=== PATIENT | female | born 1995 | race Caucasian/White ===

== ENCOUNTER 2016-12-02 13:02 | Emergency (ER) | payer BC ==
[2016-12-02 14:31] VITALS: BP 99/69; PULSE 90; O2SAT 96
[2016-12-02] MEDS ORDERED: TORAdol 30 mg Injection IM ONE (14:35)
[2016-12-02] MEDS ORDERED: Phenergan 25 MG INJ IM ONE (14:35)
[2016-12-02] MEDS ORDERED: TORAdol 30 mg Injection ONE (14:36)
[2016-12-02] MEDS ORDERED: Phenergan 25 MG INJ ONE (14:36)
--- NOTE | 2016-12-02 14:40 | ERPHSYRPT ---
- History of Present Illness Time Seen by Provider: 12/02/16 14:36 Source: patient Exam Limitations: no limitations Patient Subjective Stated Complaint: PT REPORTS LAST NIGHT BEGAN BLEEDING DURING SEXUAL ENCOUNTER-ATTEMPTED SEXUAL INTERCOURSE ET HAD SHARP PAIN-BLEEDING HAS RESOLVED TODAY-REPORTS LEFT SIDED LOW ET UPPER ABD PAIN INTERMITTANT IN NATURE-WORSENING AFTER EATING-N/V/D-REPORTS HEADACHE-HX OF HEADACHES ET IS OUT OF HOME MEDS-STATES IT FEELS LIKE THE ONES SHE USUALLY GETS Triage Nursing Assessment: PT PINK WARM ET DRY-A & O X 3-MOVING ALL EXTREMITIES WITH EASE-ABD SOFT ET TENDER TO PALP-BOWEL SOUND SPRESENT-RESP EASY ET NONLABORED Physician History: The patient is a 20-year-old female with a history of chronic migraine headaches who developed a typical migraine headache yesterday with pain behind both eyes. The headache continues today. She has tried Imitrex in the past but not today. She hasn't tried anything for her headache today. She has mild photophobia. She denies nausea at this time. She has multiple other complaints that include diarrhea for about one week that has resolved. Along with the diarrhea she had left-sided abdominal pain that is minimal now. Another complaint is last night she was having sexual activity with her boyfriend and had some vaginal bleeding afterward. The vaginal bleeding lasted only a few minutes and has stopped. She states she's had some mild pain with intercourse the past 2 weeks. Timing/Duration: yesterday Quality: aching Head Pain Location: frontal Severity of Pain-Max: moderate Severity of Pain-Current: moderate Modifying Factors: Improves With: exposure to light Associated Symptoms: denies symptoms Previous symptoms: same symptoms as today Allergies/Adverse Reactions: tramadol Allergy (Unknown, Verified 12/02/16 13:19) Home Medications: Aripiprazole [Abilify] 2 mg PO DAILY 12/02/16 [History] Atenolol 50 mg [Tenormin 50 mg] 50 mg PO BID 12/02/16 [History] Sertraline HCl 50 mg [Zoloft 50 mg Tablet] 50 mg PO DAILY 12/02/16 [History] Hx Tetanus, Diphtheria Vaccination/Date Given: Yes Hx Influenza Vaccination/Date Given: Yes (2015) Hx Pneumococcal Vaccination/Date Given: No Immunizations Up to Date: Yes - Review of Systems Constitutional: No Fever, No Chills Eyes: No Symptoms Ears, Nose, & Throat: No Symptoms Respiratory: No Cough, No Dyspnea Cardiac: No Chest Pain, No Edema, No Syncope Abdominal/Gastrointestinal: No Abdominal Pain, No Nausea, No Vomiting, No Diarrhea Genitourinary Symptoms: No Dysuria Musculoskeletal: No Back Pain, No Neck Pain Skin: No Rash Neurological: Headache Psychological: No Symptoms Endocrine: No Symptoms Hematologic/Lymphatic: No Symptoms Immunological/Allergic: No Symptoms All Other Systems: Reviewed and Negative - Past Medical History Pertinent Past Medical History: Yes Neurological History: Migraines ENT History: No Pertinent History Cardiac History: No Pertinent History Respiratory History: No Pertinent History Endocrine Medical History: No Pertinent History Musculoskeletal History: No Pertinent History GI Medical History: No Pertinent History History: No Pertinent History Psycho-Social History: No Pertinent History Female Reproductive Disorders: No Pertinent History - Past Surgical History Past Surgical History: Yes Neuro Surgical History: No Pertinent History Cardiac: No Pertinent History Respiratory: No Pertinent History Gastrointestinal: No Pertinent History Genitourinary: Other Musculoskeletal: No Pertinent History Female Surgical History: Section - Social History Smoking Status: Former smoker Exposure to second hand smoke: Yes Drug Use: none Patient Lives Alone: No - Female History Hx Last Menstrual Period: 2 WKS AGO Hx Now: No - Nursing Vital Signs Nursing Vital Signs: Initial Vital Signs Temperature 98.1 F Temperature Source Oral Pulse Rate 90 Respiratory Rate 20 Blood Pressure [Right Arm] 99/69 Pain Intensity 5 - Physical Exam General Appearance: no apparent distress Eye Exam: PERRL/EOMI Ears, Nose, Throat Exam: normal ENT inspection, moist mucous membranes Neck Exam: normal inspection, supple, full range of motion, No meningismus Respiratory Exam: normal breath sounds, lungs clear Cardiovascular Exam: regular rate/rhythm, normal heart sounds Gastrointestinal/Abdominal Exam: soft, No tenderness, No distention Back Exam: normal inspection, normal range of motion Extremity Exam: normal inspection 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, 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, 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 Exam: normal speech, PERRL, No facial droop Coordination/Gait Exam: normal cerebellar function Motor/Sensory Exam: no motor deficit, no sensory deficit Skin Exam: normal color, warm, dry, No rash SpO2 Interpretation: normal SpO2: 96 Oxygen Delivery: Room Air - Progress Progress: improved Air Movement: good Blood Culture(s) Obtained: No Antibiotics given: No Counseled pt/family regarding: diagnosis, need for follow-up - Departure Time of Disposition: 14:41 Departure Disposition: Home Clinical Impression: Migraine headache Condition: Stable Critical Care Time: No Additional Instructions: 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
== END 2016-12-02 14:52 | disposition home or self-care (01) ==
LOC: ED 13:02
DX: G43.909 Migraine, unspecified, not intractable, without status migrainosus (principal); N94.10 Unspecified dyspareunia; R10.32 Left lower quadrant pain; R10.12 Left upper quadrant pain
CPT/HCPCS: 96372; 99282; 99283; 99284; J1885; J2550

== ENCOUNTER 2017-02-22 18:31 | Emergency (ER) | payer BC ==
--- NOTE | 2017-02-22 19:26 | ERPHSYRPT ---
- History of Present Illness Time Seen by Provider: 02/22/17 19:00 Source: patient Exam Limitations: no limitations Patient Subjective Stated Complaint: headache for 3 days Triage Nursing Assessment: rt side headache for 3 days. rt side facial swelling for 3 days. staets has sharp pain to rt head with coughing. productive cough for 1 week with yellow sputum. no fever. no n/v/d. pupils tay. states has normal migraines but 'this pain is different Physician History: Recent increased treatment for HTN includes Atenolol and Lisinopril. BP remains elevated here. She C/O right parietal AYALA. LNMP 8 days ago. Timing/Duration: day(s) (3) Quality: sharpness Head Pain Location: parietal (right) Severity of Pain-Max: severe Severity of Pain-Current: severe Recent Head Trauma: no recent headache/trauma, occasional headaches Associated Symptoms: dizziness, No facial pain, No fever/chills Previous symptoms: recently seen, recently treated Allergies/Adverse Reactions: tramadol Allergy (Unknown, Verified 02/22/17 18:48) Home Medications: Aripiprazole [Abilify] 2 mg PO DAILY 12/02/16 [History] Atenolol 50 mg [Tenormin 50 mg] 50 mg PO BID 12/02/16 [History] Sertraline HCl 50 mg [Zoloft 50 mg Tablet] 50 mg PO DAILY 12/02/16 [History] Alprazolam 1 mg [Xanax 1 mg] 1 mg PO HS 02/22/17 [History] Lisinopril 20 mg [Zestril 20 MG] 20 mg PO DAILY 02/22/17 [History] Simvastatin 20 mg PO DAILY 02/22/17 [History] Hx Tetanus, Diphtheria Vaccination/Date Given: Yes Hx Influenza Vaccination/Date Given: Yes Hx Pneumococcal Vaccination/Date Given: No Immunizations Up to Date: Yes - Review of Systems Constitutional: No Symptoms Eyes: No Symptoms Ears, Nose, & Throat: No Symptoms Respiratory: No Symptoms Cardiac: No Symptoms Abdominal/Gastrointestinal: No Symptoms Musculoskeletal: No Symptoms Skin: No Symptoms Neurological: Headache Psychological: No Symptoms Endocrine: No Symptoms Hematologic/Lymphatic: No Symptoms Immunological/Allergic: No Symptoms - Past Medical History Pertinent Past Medical History: Yes Neurological History: Migraines ENT History: No Pertinent History Cardiac History: No Pertinent History, High Cholesterol, Hypertension Respiratory History: No Pertinent History Endocrine Medical History: No Pertinent History Musculoskeletal History: No Pertinent History GI Medical History: No Pertinent History History: No Pertinent History Psycho-Social History: No Pertinent History Female Reproductive Disorders: No Pertinent History - Past Surgical History Past Surgical History: Yes Neuro Surgical History: No Pertinent History Cardiac: No Pertinent History Respiratory: No Pertinent History Gastrointestinal: No Pertinent History Genitourinary: Other Musculoskeletal: No Pertinent History Female Surgical History: Section - Social History Smoking Status: Current every day smoker Exposure to second hand smoke: No Drug Use: none Patient Lives Alone: No - Female History Hx Last Menstrual Period: 2 weeks Hx Now: No - Nursing Vital Signs Nursing Vital Signs: Initial Vital Signs Temperature 97.5 F Temperature Source Oral Pulse Rate 76 Respiratory Rate 18 Blood Pressure [Right Arm] 146/96 Pain Intensity 7 - Physical Exam General Appearance: moderate distress Eye Exam: PERRL/EOMI, eyes nml inspection Ears, Nose, Throat Exam: normal ENT inspection, TMs normal, pharynx normal, moist mucous membranes Neck Exam: normal inspection, non-tender, supple, full range of motion Respiratory Exam: normal breath sounds, lungs clear, airway intact Cardiovascular Exam: regular rate/rhythm, normal heart sounds, normal peripheral pulses Gastrointestinal/Abdominal Exam: soft, normal bowel sounds Back Exam: normal inspection, normal range of motion Extremity Exam: normal inspection, normal range of motion, pelvis stable 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, 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, 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 Exam: normal hearing, normal speech, PERRL, tongue midline, No facial asymmetry, No facial droop, No facial paresthesias, No facial weakness, No gaze palsy, No hearing deficit (R), No hearing deficit (L), No tongue deviation to R , No tongue deviation to L Coordination/Gait Exam: normal cerebellar function Motor/Sensory Exam: no motor deficit, no sensory deficit, no pronator drift Skin Exam: normal color, warm, dry SpO2 Interpretation: normal SpO2: 98 Oxygen Delivery: Room Air - Course Nursing assessment & vital signs reviewed: Yes - CT Exams Head CT Interpretation: Tele-radiologist Report, No/Intracranial Hemorrhag, Other ( sphenoid sinusitis) Ordered Tests: Active Orders 24 hr Category Date Time Status HEAD WITHOUT CONTRAST [CT] Stat Exams 02/22/17 20:02 Taken Medication Summary Discontinued Medications Generic Name Dose Route Start Last Admin Trade Name Tiera PRN Reason Stop Dose Admin Diphenhydramine HCl 25 mg 02/22/17 20:03 Benadryl 50 Mg/Ml IV 02/22/17 20:04 STAT ONE Ketorolac Tromethamine 30 mg 02/22/17 20:04 Toradol 30 Mg Injection IV 02/22/17 20:05 STAT ONE Metoclopramide HCl 10 mg 02/22/17 20:02 Reglan 10 Mg/2 Ml IV 02/22/17 20:03 STAT ONE Ondansetron HCl 4 mg 02/22/17 20:03 Zofran 4 Mg/2 Ml Vial IV 02/22/17 20:04 STAT ONE - Progress Progress: improved Air Movement: good Blood Culture(s) Obtained: No Antibiotics given: Yes Will see patient in: other (PCP 1 week) Counseled pt/family regarding: diagnosis, need for follow-up, rad results - Departure Time of Disposition: 20:30 Departure Disposition: Home Clinical Impression: Headache Qualifiers: Headache type: tension-type Headache chronicity pattern: acute headache Intractability: not intractable Qualified Code(s): G44.209 - Tension-type headache, unspecified, not intractable Hypertension Qualifiers: Hypertension type: unspecified secondary hypertension Qualified Code(s): I15.9 - Secondary hypertension, unspecified; I15 - Secondary hypertension Sinusitis, acute, sphenoidal Qualifiers: Recurrence: not specified as recurrent Qualified Code(s): J01.30 - Acute sphenoidal sinusitis, unspecified Condition: Stable Critical Care Time: Yes Critical Care Time(excluding separately billable procedures): 75-104 minutes Instructions: Headache Additional Instructions: hypertension sinusitis
[2017-02-22] MEDS ORDERED: Reglan 10 MG/2 ML IV ONE (20:02)
[2017-02-22] MEDS ORDERED: BENADRYL 50 MG/ML IV ONE (20:03)
[2017-02-22] MEDS ORDERED: Zofran 4 MG/2 ML VIAL IV ONE (20:03)
[2017-02-22] MEDS ORDERED: TORAdol 30 mg Injection IV ONE (20:04)
[2017-02-22] MEDS ORDERED: LOPRESSOR 5 MG/5 ML INJECTION IV ONE ×2 (20:35→20:37)
[2017-02-22] MEDS ORDERED: Zofran 4 MG/2 ML VIAL ONE (20:37)
[2017-02-22] MEDS ORDERED: Reglan 10 MG/2 ML ONE (20:37)
[2017-02-22] MEDS ORDERED: BENADRYL 50 MG/ML ONE (20:37)
[2017-02-22] MEDS ORDERED: TORAdol 30 mg Injection ONE (20:37)
[2017-02-22] MEDS ORDERED: Zithromax 250 MG TABLET PO ONE (20:42)
[2017-02-22] MEDS ORDERED: Zithromax 250 MG TABLET ONE (20:44)
[2017-02-22 21:27] VITALS: BP 132/84; PULSE 78; O2SAT 98
--- NOTE | 2017-02-23 09:05 | XRAY ---
Indication: Migraine headache. Multiple contiguous axial images obtained through the head without contrast. Comparison: None Normal appearing brain parenchyma, ventricles, and bony calvarium. Right sphenoid sinus fluid leveling. Remaining visualized paranasal sinuses and mastoid air cells are pneumatized and clear. Impression: No acute intracranial abnormalities. Incidental paranasal sinus disease. Comment: Preliminary interpretation was made by [facility]. No discrepancy. CT DI 69.66
== END 2017-02-22 21:28 | disposition home or self-care (01) ==
LOC: ED 18:31
DX: G44.209 Tension-type headache, unspecified, not intractable (principal); I15.9 Secondary hypertension, unspecified; J01.30 Acute sphenoidal sinusitis, unspecified
CPT/HCPCS: 70450; 96374; 96375; 99284; J1200; J1885; J2405; A9270-GY

== ENCOUNTER 2017-09-15 18:00 | Emergency (ER) | payer BC ==
[2017-09-15] MEDS ORDERED: Sodium Chloride 0.9% 1000 ML 1,000 ML IV STA (18:24)
[2017-09-15] MEDS ORDERED: BENADRYL 50 MG/ML IV ONE (18:30)
[2017-09-15] MEDS ORDERED: Hydromorphone 1 mg/ml Ampule IV ONE ×2 (18:30→19:30)
[2017-09-15] MEDS ORDERED: BENADRYL 50 MG/ML ONE (18:36)
[2017-09-15] MEDS ORDERED: Sodium Chloride 0.9% 1000 ML 1,000 ML ONE (18:36)
[2017-09-15] MEDS ORDERED: Hydromorphone 1 mg/ml Ampule ONE ×2 (18:36→19:33)
[2017-09-15 18:45] LABS: BASOPHIL % 0.3 % (0.0-0.4); Eosinophil % 1.7 % (0.00-5.0); Granulocytes % 56.3 % (36.0-66.0); Lymphocytes % 34.4 % (24.0-44.0); Mean Cell Volume 94.4 fl (78-100); Mean Corpuscular Hemoglobin 32.2 pg (26-32); Mean Platelet Volume 9.4 fl (6-9.5); Monocytes % 7.3 % (0.0-12.0); Platelet Count 249 K/mm3 (150-450); Red Blood Count 3.94 M/mm3 (4.1-5.4); Red Cell Distribution Width 12.3 % (11.5-14.0); White Blood Count 11.1 K/mm3 (4.0-10.5)
[2017-09-15 19:06] LABS: ALBUMIN 3.8 g/dL (3.4-5.0); ANION GAP 15.2 MEQ/L (5-15); BILIRUBIN,TOTAL 0.5 mg/dL (0.2-1.0); Carbon Dioxide 25.1 mEq/L (21-32); Potassium 3.7 mEq/L (3.5-5.1); Total Protein 6.8 gm/dL (6.4-8.2)
--- NOTE | 2017-09-15 19:14 | ERPHSYRPT ---
- History of Present Illness Historian: patient Patient Subjective Stated Complaint: pt states she started having left sided abdominal pain this morning, states around 1400 it became unbearable. Triage Nursing Assessment: pt is aox3, pupils perrl, resps easy and non labored , radial pulses strong and equal, abd is soft and non tender w palpation, bowel sounds present and normoactivex4. pain to the LLQ constant and sharp in nature, pain radiates around the left flank to the lower back. denies any diffilculty with urination. Timing/Duration: today Abdominal Pain Onset Location: LLQ Severity of Pain-Max: severe Severity of Pain-Current: severe Hx Tetanus, Diphtheria Vaccination/Date Given: Yes Hx Influenza Vaccination/Date Given: No Hx Pneumococcal Vaccination/Date Given: No Immunizations Up to Date: Yes <LETI ENRIQUEZ - Last Filed: 09/15/17 19:10> <MOLLY CASTORENA - Last Filed: 09/15/17 20:30> - History of Present Illness Time Seen by Provider: 09/15/17 18:17 Physician History: CC: abd pain Hx: 22 y/o patient of [facility]IR[facility] Barr. She awoke this AM with left sided abdominal pain. She has no vaginal bleeding nor discharge. She has normal urination. No fever or chills. Pain is moderately severe. Remote hx of kidney stone. Prior C- section. Pain is sharp, left sided. (LETI ENRIQUEZ) Allergies/Adverse Reactions: tramadol Allergy (Unknown, Verified 09/15/17 18:22) Home Medications: Aripiprazole [Abilify] 2 mg PO DAILY 12/02/16 [History] Atenolol 50 mg [Tenormin 50 mg] 50 mg PO BID 12/02/16 [History] Sertraline HCl 50 mg [Zoloft 50 mg Tablet] 50 mg PO DAILY 12/02/16 [History] Alprazolam 1 mg [Xanax 1 mg] 1 mg PO HS 02/22/17 [History] Lisinopril 20 mg [Zestril 20 MG] 20 mg PO DAILY 02/22/17 [History] Simvastatin 20 mg PO DAILY 02/22/17 [History] Dextroamphetamine/Amphetamine [Adderall 20 mg Tablet] 20 mg PO DAILY 09/15/17 [ History] - Review of Systems Constitutional: Malaise, No Fever, No Chills Eyes: No Symptoms Ears, Nose, & Throat: No Symptoms Respiratory: No Cough, No Dyspnea Cardiac: No Chest Pain Abdominal/Gastrointestinal: Abdominal Pain, No Nausea, No Vomiting, No Diarrhea Genitourinary Symptoms: No Dysuria, No Hematuria, No , No Vaginal Bleeding, No Vaginal Discharge Musculoskeletal: No Back Pain Skin: No Rash Neurological: No Headache All Other Systems: Reviewed and Negative <ZOECARMEL - Last Filed: 09/15/17 19:10> - Past Medical History Pertinent Past Medical History: Yes Neurological History: Migraines ENT History: No Pertinent History Cardiac History: No Pertinent History, High Cholesterol, Hypertension Respiratory History: No Pertinent History Endocrine Medical History: No Pertinent History Musculoskeletal History: No Pertinent History GI Medical History: No Pertinent History History: No Pertinent History Psycho-Social History: No Pertinent History Female Reproductive Disorders: No Pertinent History - Past Surgical History Past Surgical History: Yes Neuro Surgical History: No Pertinent History Cardiac: No Pertinent History Respiratory: No Pertinent History Gastrointestinal: No Pertinent History Genitourinary: Other Musculoskeletal: No Pertinent History Female Surgical History: Section Other Surgical History: kidney stone removal - Social History Smoking Status: Former smoker Exposure to second hand smoke: No Drug Use: none 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) - Female History Hx Last Menstrual Period: 08/29/17 Hx Now: No <LETI ENRIQUEZ - Last Filed: 09/15/17 19:10> - Physical Exam General Appearance: alert Eye Exam: PERRL/EOMI Ears, Nose, Throat Exam: normal ENT inspection, moist mucous membranes Neck Exam: normal inspection, non-tender, supple Respiratory Exam: normal breath sounds, lungs clear Cardiovascular Exam: regular rate/rhythm Gastrointestinal/Abdomen Exam: soft, tenderness (left mid abdomen), guarding, No distention, No mass Pelvic Exam: normal external exam, No adnexal tenderness, No cervical motion tenderness, No vaginal bleeding, No uterine tenderness, No vaginal discharge Rectal Exam: deferred Back Exam: normal inspection, normal range of motion, No CVA tenderness Extremity Exam: normal inspection, normal range of motion Neurologic Exam: alert, 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, cooperative, sensation nml, No motor deficits Skin Exam: warm, dry, No rash SpO2 Interpretation: normal SpO2: 99 Oxygen Delivery: Room Air <LETI ENRIQUEZ - Last Filed: 09/15/17 19:10> - Nursing Vital Signs Nursing Vital Signs: Initial Vital Signs Temperature 98.9 F 09/15/17 18:13 Pulse Rate 78 09/15/17 18:13 Respiratory Rate 20 09/15/17 18:13 Blood Pressure 150/109 09/15/17 18:13 O2 Sat by Pulse Oximetry 99 09/15/17 18:13 Pain Scale Pain Intensity 6 - Course Nursing assessment & vital signs reviewed: Yes <LETI ENRIQUEZ - Last Filed: 09/15/17 19:10> - CT Exams Abdomen/Pelvis CT Interpretation: Tele-radiologist Report (THERE IS A 5 mm STONE PRESENT IN THE DISTAL LEFT URETER AT THE URETEROVESICULAR JUNCTION. MILD LEFT HYDRONEPHROSIS.) <MOLLY CASTORENA - Last Filed: 09/15/17 20:30> Ordered Tests: Active Orders 24 hr Category Date Time Status Cath for Specimen-Straight STAT Care 09/15/17 18:25 Active IV Insertion STAT Care 09/15/17 18:24 Active Pelvic Exam Assist STAT Care 09/15/17 18:24 Active Strain Urine .as ordered Care 09/15/17 20:21 Active ABDOMEN AND PELVIS W/0 CONTRAS [CT] Stat Exams 09/15/17 18:31 Taken AMYLASE Stat Lab 09/15/17 18:50 Completed BLOOD CULTURE Stat Lab 09/15/17 20:00 Received CBC W DIFF Stat Lab 09/15/17 18:30 Completed CMP Stat Lab 09/15/17 18:30 Completed CULTURE,URINE Stat Lab 09/15/17 19:10 Received HCG QUALITATIVE,SERUM Stat Lab 09/15/17 18:30 Completed LIPASE Stat Lab 09/15/17 18:50 Completed MAGNESIUM Stat Lab 09/15/17 18:50 Completed UA W/ MICROSCOPIC Stat Lab 09/15/17 19:10 Completed Wet Prep Stat Lab 09/15/17 19:10 Completed Medication Summary Generic Name Dose Route Start Last Admin Trade Name Freq PRN Reason Stop Dose Admin Tamsulosin HCl 0.4 mg 09/16/17 10:00 Flomax 0.4 Mg PO 10/16/17 09:59 DAILY MATY Discontinued Medications Generic Name Dose Route Start Last Admin Trade Name Freq PRN Reason Stop Dose Admin Diphenhydramine HCl 25 mg 09/15/17 18:30 09/15/17 18:43 Benadryl 50 Mg/Ml IV 09/15/17 18:31 25 mg STAT ONE Administration Diphenhydramine HCl Confirm 09/15/17 18:36 Benadryl 50 Mg/Ml Administered 09/15/17 18:37 Dose 50 mg .ROUTE .STK-MED ONE Hydromorphone HCl 1 mg 09/15/17 18:30 09/15/17 18:43 Hydromorphone 1 Mg/Ml Ampule IV 09/15/17 18:31 1 mg STAT ONE Administration Hydromorphone HCl Confirm 09/15/17 18:36 Hydromorphone 1 Mg/Ml Ampule Administered 09/15/17 18:37 Dose 1 mg .ROUTE .STK-MED ONE Hydromorphone HCl 1 mg 09/15/17 19:30 09/15/17 19:38 Hydromorphone 1 Mg/Ml Ampule IV 09/15/17 19:31 1 mg STAT ONE Administration Hydromorphone HCl Confirm 09/15/17 19:33 Hydromorphone 1 Mg/Ml Ampule Administered 09/15/17 19:34 Dose 1 mg .ROUTE .STK-MED ONE Sodium Chloride 1,000 mls @ 999 mls/hr 09/15/17 18:24 09/15/17 18:44 Sodium Chloride 0.9% 1000 Ml IV 09/15/17 19:24 999 mls/hr .Q1H1M STA Administration Sodium Chloride Confirm 09/15/17 18:36 Sodium Chloride 0.9% 1000 Ml Administered 09/15/17 18:37 Dose 1,000 mls @ ud .ROUTE .STK-MED ONE Ceftriaxone Sodium/Dextrose 1 g in 50 mls @ 100 mls/hr 09/15/17 19:49 20:10 Rocephin 1 Gm-D5w 50 Ml Bag IV 09/15/17 20:18 100 mls/hr STAT STA Administration Ceftriaxone Sodium/Dextrose Confirm 09/15/17 20:00 Rocephin 1 Gm-D5w 50 Ml Bag Administered 09/15/17 20:01 Dose 1 g in 50 mls @ ud IV .STK-MED ONE Ketorolac Tromethamine 30 mg 09/15/17 20:15 09/15/17 20:18 Toradol 30 Mg Injection IV 09/15/17 20:16 30 mg STAT ONE Administration Ketorolac Tromethamine Confirm 09/15/17 20:18 Toradol 30 Mg Injection Administered 09/15/17 20:19 Dose 30 mg .ROUTE .STK-MED ONE Promethazine HCl 12.5 mg 09/15/17 19:30 09/15/17 19:38 Phenergan 25 Mg Inj IV 09/15/17 19:31 12.5 mg STAT ONE Administration Promethazine HCl Confirm 09/15/17 19:34 Phenergan 25 Mg Inj Administered 09/15/17 19:35 Dose 25 mg .ROUTE .STK-MED ONE Lab/Rad Data: Laboratory Result Diagrams 09/15/17 18:30 09/15/17 18:30 Laboratory Results 09/15/17 09/15/17 09/15/17 Range/Units 19:10 18:50 18:30 WBC (4.0-10.5) K/mm3 RBC (4.1-5.4) M/mm3 Hgb (12.0-16.0) gm/dl Hct (35-47) % MCV (78-100) fl MCH (26-32) pg MCHC (32-36) g/dl RDW (11.5-14.0) % Plt Count (150-450) K/mm3 MPV (6-9.5) fl Gran % (36.0-66.0) % Lymphocytes % (24.0-44.0) % Monocytes % (0.0-12.0) % Eosinophils % (0.00-5.0) % Basophils % (0.0-0.4) % Basophils # (0-0.4) Sodium (136-145) mEq/L Potassium (3.5-5.1) mEq/L Chloride (98-107) mEq/L Carbon Dioxide (21-32) mEq/L Anion Gap (5-15) MEQ/L BUN (9-20) mg/dL Creatinine (0.55-1.30) mg/dl Estimated GFR ML/MIN Glucose (70-110) MG/DL Calcium (8.5-10.1) mg/dL Magnesium 2.0 (1.8-2.4) mg/dL Total Bilirubin (0.2-1.0) mg/dL AST (15-37) U/L ALT (12-78) U/L Alkaline Phosphatase (46-116) U/L Serum Total Protein (6.4-8.2) gm/dL Albumin (3.4-5.0) g/dL Amylase 42 (25-115) U/L Lipase 117 (73-393) U/L Serum , Qual NEGATIVE (Negative) Ur Collection Type CATH Urine Color YELLOW (YELLOW) Urine Appearance CLEAR (CLEAR) Urine pH 6.0 (5-6) Ur Specific [place] 1.020 (1.005-1.025) Urine Protein TRACE (Negative) Urine Ketones NEGATIVE (NEGATIVE) Urine Blood 250 (0-5) Jose Angel/ul Urine Nitrite NEGATIVE (NEGATIVE) Urine Bilirubin NEGATIVE (NEGATIVE) Urine Urobilinogen NORMAL (0-1) mg/dL Ur Leukocyte Esterase NEGATIVE (NEGATIVE) Urine Microscopic RBC 10-15 (0-2) /HPF Urine Microscopic WBC 15-25 (0-5) /HPF Ur Epithelial Cells FEW (FEW) /HPF Urine Bacteria FEW (NEGATIVE) /HPF Urine Culture Reflexed YES (NO) Urine Glucose NEGATIVE (NEGATIVE) mg/dL WBC (Wet Prep) Few RBC (Wet Prep) Few Epi Cells (Wet Prep) Few Bacteria (Wet Prep) Rare Clue Cells (Wet Prep) None Seen Trichomonas (Wet Prep) None Seen Budding Yeast (Wet Prp) None Seen Specimen Received 09/15/17190909/15/17 09/15/17 Range/Units 18:30 18:30 WBC 11.1 H (4.0-10.5) K/mm3 RBC 3.94 L (4.1-5.4) M/mm3 Hgb 12.7 (12.0-16.0) gm/dl Hct 37.2 (35-47) % MCV 94.4 (78-100) fl MCH 32.2 H (26-32) pg MCHC 34.1 (32-36) g/dl RDW 12.3 (11.5-14.0) % Plt Count 249 (150-450) K/mm3 MPV 9.4 (6-9.5) fl Gran % 56.3 (36.0-66.0) % Lymphocytes % 34.4 (24.0-44.0) % Monocytes % 7.3 (0.0-12.0) % Eosinophils % 1.7 (0.00-5.0) % Basophils % 0.3 (0.0-0.4) % Basophils # 0.03 (0-0.4) Sodium 143 (136-145) mEq/L Potassium 3.7 (3.5-5.1) mEq/L Chloride 106 (98-107) mEq/L Carbon Dioxide 25.1 (21-32) mEq/L Anion Gap 15.2 H (5-15) MEQ/L BUN 16 (9-20) mg/dL Creatinine 1.19 (0.55-1.30) mg/dl Estimated GFR 59 ML/MIN Glucose 97 (70-110) MG/DL Calcium 8.9 (8.5-10.1) mg/dL Magnesium (1.8-2.4) mg/dL Total Bilirubin 0.50 (0.2-1.0) mg/dL AST 16 (15-37) U/L ALT 25 (12-78) U/L Alkaline Phosphatase 46 (46-116) U/L Serum Total Protein 6.8 (6.4-8.2) gm/dL Albumin 3.8 (3.4-5.0) g/dL Amylase (25-115) U/L Lipase (73-393) U/L Serum , Qual (Negative) Ur Collection Type Urine Color (YELLOW) Urine Appearance (CLEAR) Urine pH (5-6) Ur Specific [place] (1.005-1.025) Urine Protein (Negative) Urine Ketones (NEGATIVE) Urine Blood (0-5) Jose Angel/ul Urine Nitrite (NEGATIVE) Urine Bilirubin (NEGATIVE) Urine Urobilinogen (0-1) mg/dL Ur Leukocyte Esterase (NEGATIVE) Urine Microscopic RBC (0-2) /HPF Urine Microscopic WBC (0-5) /HPF Ur Epithelial Cells (FEW) /HPF Urine Bacteria (NEGATIVE) /HPF Urine Culture Reflexed (NO) Urine Glucose (NEGATIVE) mg/dL WBC (Wet Prep) RBC (Wet Prep) Epi Cells (Wet Prep) Bacteria (Wet Prep) Clue Cells (Wet Prep) Trichomonas (Wet Prep) Budding Yeast (Wet Prp) Specimen Received <LETI ENRIQUEZ - Last Filed: 09/15/17 19:10> <MOLLY CASTORENA - Last Filed: 09/15/17 20:30> - Progress Progress Note: 09/15/17 19:13 Pelvic exam unremarkable. Will get scan abd. Report to Dr Castorena for further care and disposition. (LETI ENRIQUEZ) 09/15/17 20:[address] CASTORENA AT 1917: PERRL, EOMI, PHARYNX PINK, LUNGS CLEAR, NO CARDIAC RUB, ABDOMINAL B.S. NORMAL, MILD LLQ/LEFT MID ABDOMINAL TENDERNESS, NO ANKLE EDEMA, ALERT & COOPERATIVE. (MOLLY CASTORENA) <LETI ENRIQUEZ - Last Filed: 09/15/17 19:10> - Departure Time of Disposition: 20:30 Departure Disposition: Home Critical Care Time: No <MOLLY CASTORENA - Last Filed: 09/15/17 20:30> - Departure Clinical Impression: LEFT RENAL COLIC, UTI Condition: Stable Referrals: SANDER BARR [Primary Care Provider] - Instructions: Kidney Stones Additional Instructions: FOLLOW UP WITH DR RIVERA(UROLOGIST): CALL [phone] ON SUNDAY MORNING 09/17/17 FOR AN APPOINTMENT. STRAIN ALL URINES. Prescriptions: Hydrocodone Bit/Acetaminophen [Page 7.5-325 Tablet] 1 each PO Q4H PRN PRN #14 tablet PRN Reason: Pain Promethazine HCl 25 mg [Phenergan 25 mg] 25 mg PO Q4H PRN PRN #20 tablet PRN Reason: Nausea/Vomiting Smz/Tmp Ds Tablet [Bactrim Ds Tablet] 1 udtab PO BID #20 tablet Tamsulosin HCl 0.4 mg [Flomax 0.4 MG] 0.4 mg PO DAILY #7 cap
[2017-09-15] MEDS ORDERED: Phenergan 25 MG INJ IV ONE (19:30)
[2017-09-15 19:31] LABS: Bilirubin NEGATIVE (NEGATIVE); Blood 250 Ery/ul (0-5); COMPLETE URINE MICROSCOPIC? YES; Collection Type CATH; Glucose NEGATIVE (NEGATIVE); Leukocyte Esterase NEGATIVE (NEGATIVE)
[2017-09-15 19:33] LABS: Bacteria Rare; Clue Cells None Seen; Trichomonas None Seen; Yeast None Seen
[2017-09-15] MEDS ORDERED: Phenergan 25 MG INJ ONE (19:34)
[2017-09-15 19:35] LABS: ADD URINE CULTURE? YES (NO); Bacteria FEW /HPF (NEGATIVE); Epithelial Cells FEW /HPF (FEW); WBC 15-25 /HPF (0-5)
[2017-09-15] MEDS ORDERED: ROCEPHIN 1 Gm-D5w 50 ml Bag** 1 G/50 ML IVPB IV STA (19:49)
[2017-09-15] MEDS ORDERED: ROCEPHIN 1 Gm-D5w 50 ml Bag** 1 G/50 ML IVPB IV ONE (20:00)
[2017-09-15] MEDS ORDERED: TORAdol 30 mg Injection IV ONE (20:15)
[2017-09-15] MEDS ORDERED: TORAdol 30 mg Injection ONE (20:18)
[2017-09-15] MEDS ORDERED: Flomax 0.4 MG ONE (20:29)
[2017-09-15 20:46] LABS: CHLAMYDIA DNA NEGATIVE
[2017-09-15 21:07] VITALS: BP 148/92; PULSE 76; O2SAT 98
--- NOTE | 2017-09-16 09:00 | XRAY ---
Indication: Left lower quadrant pain and nausea. History of stone. Multiple contiguous axial images obtained through the abdomen and pelvis without contrast using renal stone protocol. Comparison: April 20, 2013. Lung bases demonstrates minimal bibasilar dependent atelectasis. Heart is not enlarged. There is a 4 mm distal left ureteral calculus just proximal to the UVJ. Proximal left ureter is prominent up to 7 mm and there is mild left hydronephrosis consistent with partial obstructive uropathy. Additional bilateral renal micro-calculi. Right kidney demonstrates mild scarring. Noncontrasted stomach and bowel loops appear nonobstructed. Normal appendix. No free fluid/air. Remaining liver, gallbladder, pancreas, spleen, adrenal glands, kidneys, ureters, bladder, uterus, and aorta appear unremarkable for noncontrast exam. Osseous structures intact. Impression: 4 mm distal left ureteral calculus producing partial obstruction. Additional bilateral renal micro-calculi. Comment: Preliminary interpretation was made by [facility]. No discrepancy. CTDI 27.75
[2017-09-16] MEDS ORDERED: Flomax 0.4 MG PO SCH (10:00)
== END 2017-09-15 21:00 | disposition home or self-care (01) ==
LOC: ED 18:00
DX: N23 Unspecified renal colic (principal); N39.0 Urinary tract infection, site not specified; R10.9 Unspecified abdominal pain
CPT/HCPCS: 36000; 36415; 74176; 80053; 81000; 82150; 83690; 83735; 84703; 85025; 87040; 87086; 87210; 87490; 87590; 96360; 96365; 96374; 96375; 99284; 99285; J0696; J1170; J1200; J1885; J2550; P9612; A9270-GY

== ENCOUNTER 2017-09-19 01:29 | Emergency (ER) | payer BC ==
[2017-09-19] MEDS ORDERED: TORAdol 30 mg Injection IV ONE (01:59)
[2017-09-19] MEDS ORDERED: Phenergan 25 MG INJ IV ONE (01:59)
[2017-09-19] MEDS ORDERED: Sodium Chloride 0.9% 1000 ML 1,000 ML IV SCH (02:00)
[2017-09-19] MEDS ORDERED: Phenergan 25 MG INJ ONE (02:06)
[2017-09-19] MEDS ORDERED: Sodium Chloride 0.9% 1000 ML 1,000 ML ONE (02:06)
[2017-09-19] MEDS ORDERED: TORAdol 30 mg Injection ONE (02:06)
--- NOTE | 2017-09-19 02:10 | ERPHSYRPT ---
- History of Present Illness Time Seen by Provider: 09/19/17 01:44 Historian: patient Exam Limitations: no limitations Patient Subjective Stated Complaint: c/o increasing left side abd pain and radiating to left flank Triage Nursing Assessment: abd pain left side, nausea, no vomiting, states has hx of kidney infections and stones Physician History: FOR THE PAST 4 DAYS PT HAS HAD INTERMITTENT SHARP LEFT SIDED ABDOMINAL PAIN LASTING UP TO 30 MINUTES PER EPISODE AND RADIATING TO THE LEFT FLANK WITH NAUSEA. LAST BM WAS TODAY & WNL. PT CAME TO [facility] 3 DAYS AGO, DX'ED WITH A UTI , HAD A CT ABD/PEL WHICH SHOWED A 5mm STONE AND WAS REFERRED TO DR RIVERA WITH RX FOR NORCO, PHENERGAN, BACTRIM DS AND FLOMAX. PT STATES TONIGHT THE PAIN IS WORSE. PT DENIES FEVER, VOMITING, CHEST PAIN. PT STATES SHE CALLED DR RIVERA'S OFFICE AND IS WAITING FOR A CALL BACK FOR HER APPOINTMENT. Allergies/Adverse Reactions: tramadol Allergy (Unknown, Verified 09/15/17 18:22) Home Medications: Aripiprazole [Abilify] 2 mg PO DAILY 12/02/16 [History] Atenolol 50 mg [Tenormin 50 mg] 50 mg PO BID 12/02/16 [History] Sertraline HCl 50 mg [Zoloft 50 mg Tablet] 50 mg PO DAILY 12/02/16 [History] Alprazolam 1 mg [Xanax 1 mg] 1 mg PO HS 02/22/17 [History] Lisinopril 20 mg [Zestril 20 MG] 20 mg PO DAILY 02/22/17 [History] Simvastatin 20 mg PO DAILY 02/22/17 [History] Dextroamphetamine/Amphetamine [Adderall 20 mg Tablet] 20 mg PO DAILY 09/15/17 [ History] Hx Tetanus, Diphtheria Vaccination/Date Given: Yes Hx Influenza Vaccination/Date Given: No Hx Pneumococcal Vaccination/Date Given: No Immunizations Up to Date: Yes - Review of Systems Constitutional: No Fever Respiratory: No Dyspnea Cardiac: No Chest Pain Abdominal/Gastrointestinal: Abdominal Pain, Nausea, No Vomiting, No Diarrhea Musculoskeletal: Back Pain Neurological: No Headache All Other Systems: Reviewed and Negative - Past Medical History Pertinent Past Medical History: Yes Neurological History: Migraines ENT History: No Pertinent History Cardiac History: No Pertinent History, High Cholesterol, Hypertension Respiratory History: No Pertinent History Endocrine Medical History: No Pertinent History Musculoskeletal History: No Pertinent History GI Medical History: No Pertinent History History: No Pertinent History Psycho-Social History: No Pertinent History Female Reproductive Disorders: No Pertinent History - Past Surgical History Past Surgical History: Yes Neuro Surgical History: No Pertinent History Cardiac: No Pertinent History Respiratory: No Pertinent History Gastrointestinal: No Pertinent History Genitourinary: Other Musculoskeletal: No Pertinent History Female Surgical History: Section Other Surgical History: kidney stone removal - Social History Smoking Status: Former smoker Exposure to second hand smoke: No Drug Use: none 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) - Female History Hx Last Menstrual Period: 08/28/2017 Hx Now: No - Nursing Vital Signs Nursing Vital Signs: Initial Vital Signs Temperature 97.5 F 09/19/17 01:35 Pulse Rate 86 09/19/17 01:35 Respiratory Rate 20 09/19/17 01:35 O2 Sat by Pulse Oximetry 99 09/19/17 01:35 Pain Scale Pain Intensity 7 - Physical Exam General Appearance: alert Eye Exam: PERRL/EOMI Ears, Nose, Throat Exam: TMs normal, pharynx normal, moist mucous membranes Neck Exam: normal inspection Respiratory Exam: lungs clear Cardiovascular Exam: normal heart sounds Gastrointestinal/Abdomen Exam: soft, normal bowel sounds, tenderness (MILD LEFT SIDED ABDOMINAL TENDERNESS), No guarding Back Exam: normal range of motion Extremity Exam: normal inspection, No pedal edema Neurologic Exam: alert, cooperative Skin Exam: warm, dry SpO2 Interpretation: normal SpO2: 99 Oxygen Delivery: Room Air - Course Nursing assessment & vital signs reviewed: Yes - CT Exams Abdomen/Pelvis CT Interpretation: Tele-radiologist Report (MILD LEFT HYDROURETERONEPHROSIS WITH PERINEPHRIC AND PERIURETERAL STRANDING. THERE IS A STONE AT THE LEFT UVJ WHICH MEASURES JUST UNDER 5 mm MAXIMALLY. THIS APPEARANCE IS UNCHANGED COMPARED TO THE PRIOR EXAMINATION. THERE ARE ADDITIONAL NON-OBSTRUCTING STONES IN BOTH RENAL COLLECTING SYSTEMS.) Ordered Tests: Active Orders 24 hr Category Date Time Status IV Insertion STAT Care 09/19/17 01:59 Active ABDOMEN AND PELVIS W/0 CONTRAS [CT] Stat Exams 09/19/17 02:01 Taken AMYLASE Stat Lab 09/19/17 02:17 Completed CBC W DIFF Stat Lab 09/19/17 02:17 Completed CMP Stat Lab 09/19/17 02:17 Completed CULTURE,URINE Stat Lab 09/19/17 02:18 Received HCG QUALITATIVE,SERUM Stat Lab 09/19/17 02:17 Completed LIPASE Stat Lab 09/19/17 02:17 Completed MAG [MAGNESIUM] Stat Lab 09/19/17 02:17 Completed UA W/ MICROSCOPIC Stat Lab 09/19/17 02:18 Completed Medication Summary Generic Name Dose Route Start Last Admin Trade Name Freq PRN Reason Stop Dose Admin Sodium Chloride 1,000 mls @ 100 mls/hr 09/19/17 02:00 09/19/17 02:10 Sodium Chloride 0.9% 1000 Ml IV 10/19/17 01:59 100 mls/hr .Q10H MATY Administration Discontinued Medications Generic Name Dose Route Start Last Admin Trade Name Freq PRN Reason Stop Dose Admin Hydromorphone HCl 1 mg 09/19/17 03:26 09/19/17 03:30 Hydromorphone 1 Mg/Ml Ampule IV 09/19/17 03:27 1 mg STAT ONE Administration Hydromorphone HCl Confirm 09/19/17 03:29 Hydromorphone 1 Mg/Ml Ampule Administered 09/19/17 03:30 Dose 1 mg .ROUTE .STK-MED ONE Ceftriaxone Sodium/Dextrose 1 g in 50 mls @ 100 mls/hr 09/19/17 02:38 02:43 Rocephin 1 Gm-D5w 50 Ml Bag IV 09/19/17 03:07 100 mls/hr STAT STA Administration Ceftriaxone Sodium/Dextrose Confirm 09/19/17 02:42 Rocephin 1 Gm-D5w 50 Ml Bag Administered 09/19/17 02:43 Dose 1 g in 50 mls @ ud IV .STK-MED ONE Ketorolac Tromethamine 30 mg 09/19/17 01:59 09/19/17 02:12 Toradol 30 Mg Injection IV 09/19/17 02:00 30 mg STAT ONE Administration Ketorolac Tromethamine Confirm 09/19/17 02:06 Toradol 30 Mg Injection Administered 09/19/17 02:07 Dose 30 mg .ROUTE .STK-MED ONE Promethazine HCl 12.5 mg 09/19/17 01:59 09/19/17 02:11 Phenergan 25 Mg Inj IV 09/19/17 02:00 12.5 mg STAT ONE Administration Promethazine HCl Confirm 09/19/17 02:06 Phenergan 25 Mg Inj Administered 09/19/17 02:07 Dose 25 mg .ROUTE .STK-MED ONE Lab/Rad Data: Laboratory Result Diagrams 09/19/17 02:17 09/19/17 02:17 Laboratory Results 09/19/17 09/19/17 09/19/17 Range/Units 02:18 02:17 02:17 WBC (4.0-10.5) K/mm3 RBC (4.1-5.4) M/mm3 Hgb (12.0-16.0) gm/dl Hct (35-47) % MCV (78-100) fl MCH (26-32) pg MCHC (32-36) g/dl RDW (11.5-14.0) % Plt Count (150-450) K/mm3 MPV (6-9.5) fl Gran % (36.0-66.0) % Lymphocytes % (24.0-44.0) % Monocytes % (0.0-12.0) % Eosinophils % (0.00-5.0) % Basophils % (0.0-0.4) % Basophils # (0-0.4) Sodium (136-145) mEq/L Potassium (3.5-5.1) mEq/L Chloride (98-107) mEq/L Carbon Dioxide (21-32) mEq/L Anion Gap (5-15) MEQ/L BUN (9-20) mg/dL Creatinine (0.55-1.30) mg/dl Estimated GFR ML/MIN Glucose (70-110) MG/DL Calcium (8.5-10.1) mg/dL Magnesium 1.7 L (1.8-2.4) mg/dL Total Bilirubin (0.2-1.0) mg/dL AST (15-37) U/L ALT (12-78) U/L Alkaline Phosphatase (46-116) U/L Serum Total Protein (6.4-8.2) gm/dL Albumin (3.4-5.0) g/dL Amylase (25-115) U/L Lipase (73-393) U/L Serum , Qual NEGATIVE (Negative) Ur Collection Type VOID Urine Color YELLOW (YELLOW) Urine Appearance CLEAR (CLEAR) Urine pH 5.0 (5-6) Ur Specific [place] 1.015 (1.005-1.025) Urine Protein NEGATIVE (Negative) Urine Ketones NEGATIVE (NEGATIVE) Urine Blood 250 (0-5) Jose Angel/ul Urine Nitrite NEGATIVE (NEGATIVE) Urine Bilirubin NEGATIVE (NEGATIVE) Urine Urobilinogen NORMAL (0-1) mg/dL Ur Leukocyte Esterase TRACE (NEGATIVE) Urine Microscopic RBC 15-25 (0-2) /HPF Urine Microscopic WBC 5-10 (0-5) /HPF Ur Epithelial Cells MODERATE (FEW) /HPF Urine Bacteria MODERATE (NEGATIVE) /HPF Urine Mucus SLIGHT (NEGATIVE) /HPF Urine Culture Reflexed YES (NO) Urine Glucose NEGATIVE (NEGATIVE) mg/dL Specimen Received 09/19/17 0220 09/19/17 09/19/17 Range/Units 02:17 02:17 WBC 8.3 (4.0-10.5) K/mm3 RBC 3.88 L (4.1-5.4) M/mm3 Hgb 12.3 (12.0-16.0) gm/dl Hct 36.7 (35-47) % MCV 94.6 (78-100) fl MCH 31.7 (26-32) pg MCHC 33.5 (32-36) g/dl RDW 11.9 (11.5-14.0) % Plt Count 244 (150-450) K/mm3 MPV 9.3 (6-9.5) fl Gran % 48.2 (36.0-66.0) % Lymphocytes % 42.9 (24.0-44.0) % Monocytes % 6.5 (0.0-12.0) % Eosinophils % 2.2 (0.00-5.0) % Basophils % 0.2 (0.0-0.4) % Basophils # 0.02 (0-0.4) Sodium 140 (136-145) mEq/L Potassium 3.8 (3.5-5.1) mEq/L Chloride 105 (98-107) mEq/L Carbon Dioxide 24.9 (21-32) mEq/L Anion Gap 14.0 (5-15) MEQ/L BUN 8 L (9-20) mg/dL Creatinine 0.90 (0.55-1.30) mg/dl Estimated GFR > 60 ML/MIN Glucose 94 (70-110) MG/DL Calcium 8.6 (8.5-10.1) mg/dL Magnesium (1.8-2.4) mg/dL Total Bilirubin 0.20 (0.2-1.0) mg/dL AST 17 (15-37) U/L ALT 25 (12-78) U/L Alkaline Phosphatase 51 (46-116) U/L Serum Total Protein 7.0 (6.4-8.2) gm/dL Albumin 3.7 (3.4-5.0) g/dL Amylase 43 (25-115) U/L Lipase 102 (73-393) U/L Serum , Qual (Negative) Ur Collection Type Urine Color (YELLOW) Urine Appearance (CLEAR) Urine pH (5-6) Ur Specific [place] (1.005-1.025) Urine Protein (Negative) Urine Ketones (NEGATIVE) Urine Blood (0-5) Jose Angel/ul Urine Nitrite (NEGATIVE) Urine Bilirubin (NEGATIVE) Urine Urobilinogen (0-1) mg/dL Ur Leukocyte Esterase (NEGATIVE) Urine Microscopic RBC (0-2) /HPF Urine Microscopic WBC (0-5) /HPF Ur Epithelial Cells (FEW) /HPF Urine Bacteria (NEGATIVE) /HPF Urine Mucus (NEGATIVE) /HPF Urine Culture Reflexed (NO) Urine Glucose (NEGATIVE) mg/dL Specimen Received - Departure Time of Disposition: 04:20 Departure Disposition: Home Clinical Impression: LEFT RENAL COLIC, UTI, MILD HYPOMAGNESEMIA Condition: Stable Critical Care Time: No Referrals: SANDER DANIELS [Primary Care Provider] - Instructions: Kidney Stones Additional Instructions: CALL DR RIVERA'S OFFICE THIS AM TO SCHEDULE AN APPOINTMENT([phone]). CONTINUE BACTRIM DS. STRAIN ALL URINES. Prescriptions: Promethazine HCl 25 mg [Phenergan 25 mg] 25 mg PO Q4H PRN PRN #14 tablet PRN Reason: Nausea/Vomiting Ketorolac Tromethamine [Toradol] 10 mg PO Q8H PRN PRN #14 tablet PRN Reason: Pain
[2017-09-19 02:22] LABS: BASOPHIL % 0.2 % (0.0-0.4); Eosinophil % 2.2 % (0.00-5.0); Granulocytes % 48.2 % (36.0-66.0); Lymphocytes % 42.9 % (24.0-44.0); Mean Cell Volume 94.6 fl (78-100); Mean Corpuscular Hemoglobin 31.7 pg (26-32); Mean Platelet Volume 9.3 fl (6-9.5); Monocytes % 6.5 % (0.0-12.0); Platelet Count 244 K/mm3 (150-450); Red Blood Count 3.88 M/mm3 (4.1-5.4); Red Cell Distribution Width 11.9 % (11.5-14.0); White Blood Count 8.3 K/mm3 (4.0-10.5)
[2017-09-19 02:35] LABS: ADD URINE CULTURE? YES (NO); Bacteria MODERATE /HPF (NEGATIVE); Bilirubin NEGATIVE (NEGATIVE); Blood 250 Ery/ul (0-5); COMPLETE URINE MICROSCOPIC? YES; Collection Type VOID; Epithelial Cells MODERATE /HPF (FEW); Glucose NEGATIVE (NEGATIVE); Leukocyte Esterase TRACE (NEGATIVE); Mucus SLIGHT /HPF (NEGATIVE)
[2017-09-19] MEDS ORDERED: ROCEPHIN 1 Gm-D5w 50 ml Bag** 1 G/50 ML IVPB IV STA (02:38)
[2017-09-19] MEDS ORDERED: ROCEPHIN 1 Gm-D5w 50 ml Bag** 1 G/50 ML IVPB IV ONE (02:42)
[2017-09-19 02:43] LABS: ALBUMIN 3.7 g/dL (3.4-5.0); ALKALINE PHOSPHATASE 51 U/L (46-116); BLOOD UREA NITROGEN 8 mg/dL (9-20); CHLORIDE 105 mEq/L (98-107); Carbon Dioxide 24.9 mEq/L (21-32); Glucose 94 MG/DL (70-110); LIPASE 102 U/L (73-393); Potassium 3.8 mEq/L (3.5-5.1); SGOT/AST 17 U/L (15-37); SGPT/ALT 25 U/L (12-78); SODIUM 140 mEq/L (136-145)
[2017-09-19] MEDS ORDERED: Hydromorphone 1 mg/ml Ampule IV ONE (03:26)
[2017-09-19] MEDS ORDERED: Hydromorphone 1 mg/ml Ampule ONE (03:29)
[2017-09-19] MEDS ORDERED: NORCO 5/325 MG PO ONE (04:11)
[2017-09-19] MEDS ORDERED: MAG-OX 400 ONE (04:18)
[2017-09-19] MEDS ORDERED: NORCO 5/325 MG ONE (04:18)
[2017-09-19 04:36] VITALS: BP 147/102; PULSE 79; O2SAT 98
--- NOTE | 2017-09-19 09:10 | XRAY ---
Indication: Left lower quadrant pain and nausea. History of stone. Multiple contiguous axial images obtained through the abdomen and pelvis without contrast using renal stone protocol. Comparison: April 20, 2013. Lung bases again demonstrates minimal bibasilar dependent atelectasis. Heart is not enlarged. Previous 4-5 mm distal left UVJ calculus unchanged in position. The proximal left ureter remains prominent along with mild hydronephrosis. No perinephric fluid. Stable bilateral renal micro-calculi and right renal scarring. Noncontrasted stomach and bowel loops appear nonobstructed. There is now mild diffuse colonic fecal debris. Normal appendix. No free fluid/air. Remaining liver, gallbladder, pancreas, spleen, adrenal glands, kidneys, ureters, bladder, uterus, and aorta appear unremarkable for noncontrast exam. Osseous structures intact. Impression: 1. Essentially stable distal left UVJ calculus again producing partial obstruction. Also stable bilateral renal micro-calculi. 2. New fecal stasis without obstruction. Comment: Preliminary interpretation was made by [facility]. No critical discrepancy. CTDI 27.86
[2017-09-19] MEDS ORDERED: MAG-OX 400 PO SCH (10:00)
== END 2017-09-19 04:56 | disposition home or self-care (01) ==
LOC: ED 01:29
DX: N23 Unspecified renal colic (principal); N39.0 Urinary tract infection, site not specified; E83.42 Hypomagnesemia; R10.9 Unspecified abdominal pain; R11.0 Nausea; Z79.899 Other long term (current) drug therapy
CPT/HCPCS: 36000; 36415; 74176; 80053; 81000; 82150; 83690; 83735; 84703; 85025; 87086; 96374; 96375; 99284; J0696; J1170; J1885; J2550; A9270-GY

== ENCOUNTER 2017-10-06 12:38 | Emergency (ER) | payer BC, OTHER ==
[2017-10-06] MEDS ORDERED: Sodium Chloride 0.9% 1000 ML 1,000 ML IV STA (13:01)
[2017-10-06 13:02] VITALS: O2SAT 99
[2017-10-06] MEDS ORDERED: Sodium Chloride 0.9% 1000 ML 1,000 ML ONE (13:05)
--- NOTE | 2017-10-06 13:09 | ERPHSYRPT ---
- History of Present Illness Time Seen by Provider: 10/06/17 12:56 Source: patient Exam Limitations: clinical condition Patient Subjective Stated Complaint: left upper quad abd pain for one week. had kidney stone removed on sep.28 and has had this abd since then. also having nausea and "a little diarrhea". also having some urinary hesitancy. Triage Nursing Assessment: ambulated to room per self without difficulty. skin w/d, color normal, resp easy. abd soft, tender left upper quad. Physician History: PATIENT COMPLAINS OF LEFT UPPER ABDOMINAL PAIN FOR 2 WEEKS, HAD CYSTOSCOPY REMOVAL OF LEFT URETER STONE ON Sep. HAS NAUSEA AFTER MEALS, DENIES EMESIS, DIARRHEA, FEVER, URINARY SYMPTOMS. Timing/Duration: week(s) Activites at Onset: eating Quality: stabbing Onset Location: other (LEFT UPPER QUAD) Pain Radiation: none Severity of Pain-Max: moderate Severity of Pain-Current: moderate Prior abdominal problems: other (RECENT SURGERY, CYSTOSCOPY WITH LEFT URETERAL STONE RETRIVAL ) Sexual intercourse history: non-contributory Associated Symptoms: nausea Allergies/Adverse Reactions: tramadol Allergy (Unknown, Verified 10/06/17 12:50) Home Medications: Aripiprazole [Abilify] 2 mg PO DAILY 12/02/16 [History] Atenolol 50 mg [Tenormin 50 mg] 50 mg PO BID 12/02/16 [History] Sertraline HCl 50 mg [Zoloft 50 mg Tablet] 50 mg PO DAILY 12/02/16 [History] Alprazolam 1 mg [Xanax 1 mg] 1 mg PO HS 02/22/17 [History] Lisinopril 20 mg [Zestril 20 MG] 20 mg PO DAILY 02/22/17 [History] Simvastatin 20 mg PO DAILY 02/22/17 [History] Dextroamphetamine/Amphetamine [Adderall 20 mg Tablet] 20 mg PO DAILY 09/15/17 [ History] Hx Tetanus, Diphtheria Vaccination/Date Given: Yes Hx Influenza Vaccination/Date Given: No Hx Pneumococcal Vaccination/Date Given: No - Review of Systems Constitutional: No Fever, No Chills Eyes: No Symptoms Ears, Nose, & Throat: No Symptoms Respiratory: No Symptoms, No Cough, No Dyspnea Cardiac: No Chest Pain, No Edema, No Syncope Abdominal/Gastrointestinal: No Abdominal Pain, No Nausea, No Vomiting, No Diarrhea Genitourinary Symptoms: No Dysuria Musculoskeletal: No Symptoms, No Back Pain, No Neck Pain Skin: No Rash Neurological: No Dizziness, No Focal Weakness, No Sensory Changes Psychological: No Symptoms Endocrine: No Symptoms All Other Systems: Reviewed and Negative - Past Medical History Pertinent Past Medical History: Yes Neurological History: Migraines ENT History: No Pertinent History Cardiac History: No Pertinent History, High Cholesterol, Hypertension Respiratory History: No Pertinent History Endocrine Medical History: No Pertinent History Musculoskeletal History: No Pertinent History GI Medical History: No Pertinent History History: No Pertinent History Psycho-Social History: No Pertinent History Female Reproductive Disorders: No Pertinent History - Past Surgical History Past Surgical History: Yes Neuro Surgical History: No Pertinent History Cardiac: No Pertinent History Respiratory: No Pertinent History Gastrointestinal: No Pertinent History Genitourinary: Other Musculoskeletal: No Pertinent History Female Surgical History: Section Other Surgical History: kidney stone removal - Social History Smoking Status: Former smoker Exposure to second hand smoke: No Drug Use: none 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) - Female History Hx Last Menstrual Period: two weeks ago Hx Now: (unknown) - Nursing Vital Signs Nursing Vital Signs: Initial Vital Signs Temperature 98.8 F 10/06/17 12:41 Pulse Rate 92 H 10/06/17 12:41 Respiratory Rate 16 10/06/17 12:41 Blood Pressure 153/111 10/06/17 12:41 O2 Sat by Pulse Oximetry 99 10/06/17 12:41 Pain Scale Pain Intensity 4 - Physical Exam General Appearance: no apparent distress, alert Eye Exam: PERRL/EOMI, eyes nml inspection Ears, Nose, Throat Exam: normal ENT inspection, TMs normal, pharynx normal, moist mucous membranes Neck Exam: normal inspection, non-tender, supple, full range of motion Respiratory Exam: normal breath sounds, lungs clear, No respiratory distress Cardiovascular Exam: regular rate/rhythm, normal heart sounds, normal peripheral pulses Gastrointestinal/Abdomen Exam: soft, normal bowel sounds, No tenderness, No mass Back Exam: normal inspection, normal range of motion, No CVA tenderness, No vertebral tenderness Extremity Exam: normal inspection, normal range of motion, pelvis stable Neurologic Exam: alert, 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, cooperative, machine crater II-XII nml as tested, normal mood/affect, sensation nml, No motor deficits Skin Exam: normal color, warm, dry Lymphatic Exam: No adenopathy SpO2: 99 Oxygen Delivery: Room Air - CT Exams Abdomen/Pelvis CT Interpretation: Tele-radiologist Report (THERE ARE ONE OR MORE NONOBSTRUCTING RIGHT RENAL CALYCEAL STONES, APPENDIX APPEARS NORMAL, NO MUCOSAL THICKING, FREE AIR OR FLUID COLLECTION.) Ordered Tests: Active Orders 24 hr Category Date Time Status Clean Catch Urine Specimen STAT Care 10/06/17 12:52 Active IV Insertion STAT Care 10/06/17 12:52 Active ABDOMEN AND PELVIS W&WO CONTRA [CT] Stat Exams 10/06/17 13:02 Taken AMYLASE Stat Lab 10/06/17 12:50 Completed CBC W DIFF Stat Lab 10/06/17 12:50 Completed CMP Stat Lab 10/06/17 12:50 Completed CULTURE,URINE Stat Lab 10/06/17 12:50 Received HCG,QUALITATIVE URINE Stat Lab 10/06/17 12:50 Completed LIPASE Stat Lab 10/06/17 12:50 Completed UA W/ MICROSCOPIC Stat Lab 10/06/17 12:50 Completed Urine Triage Profile Stat Lab 10/06/17 12:50 Completed Medication Summary Discontinued Medications Generic Name Dose Route Start Last Admin Trade Name Freq PRN Reason Stop Dose Admin Sodium Chloride 1,000 mls @ 999 mls/hr 10/06/17 13:01 10/06/17 13:07 Sodium Chloride 0.9% 1000 Ml IV 10/06/17 14:01 999 mls/hr .Q1H1M STA Administration Sodium Chloride Confirm 10/06/17 13:05 Sodium Chloride 0.9% 1000 Ml Administered 10/06/17 13:06 Dose 1,000 mls @ ud .ROUTE .STK-MED ONE Ceftriaxone Sodium/Dextrose 1 g in 50 mls @ 100 mls/hr 10/06/17 13:59 14:10 Rocephin 1 Gm-D5w 50 Ml Bag IV 10/06/17 14:28 100 mls/hr STAT STA Administration Ceftriaxone Sodium/Dextrose Confirm 10/06/17 14:04 Rocephin 1 Gm-D5w 50 Ml Bag Administered 10/06/17 14:05 Dose 1 g in 50 mls @ ud IV .STK-MED ONE Ketorolac Tromethamine 30 mg 10/06/17 14:02 10/06/17 14:09 Toradol 30 Mg Injection IV 10/06/17 14:03 30 mg STAT ONE Administration Ketorolac Tromethamine Confirm 10/06/17 14:04 Toradol 30 Mg Injection Administered 10/06/17 14:05 Dose 30 mg .ROUTE .STK-MED ONE Ondansetron HCl 4 mg 10/06/17 14:05 10/06/17 14:10 Zofran 4 Mg/2 Ml Vial IV 10/06/17 14:06 4 mg STAT ONE Administration Ondansetron HCl Confirm 10/06/17 14:06 Zofran 4 Mg/2 Ml Vial Administered 10/06/17 14:07 Dose 4 mg .ROUTE .STK-MED ONE Lab/Rad Data: Laboratory Result Diagrams 10/06/17 12:50 10/06/17 12:50 Laboratory Results 10/06/17 10/06/17 10/06/17 Range/Units 12:50 12:50 12:50 WBC (4.0-10.5) K/mm3 RBC (4.1-5.4) M/mm3 Hgb (12.0-16.0) gm/dl Hct (35-47) % MCV (78-100) fl MCH (26-32) pg MCHC (32-36) g/dl RDW (11.5-14.0) % Plt Count (150-450) K/mm3 MPV (6-9.5) fl Gran % (36.0-66.0) % Lymphocytes % (24.0-44.0) % Monocytes % (0.0-12.0) % Eosinophils % (0.00-5.0) % Basophils % (0.0-0.4) % Basophils # (0-0.4) Sodium (136-145) mEq/L Potassium (3.5-5.1) mEq/L Chloride (98-107) mEq/L Carbon Dioxide (21-32) mEq/L Anion Gap (5-15) MEQ/L BUN (9-20) mg/dL Creatinine (0.55-1.30) mg/dl Estimated GFR ML/MIN Glucose (70-110) MG/DL Calcium (8.5-10.1) mg/dL Total Bilirubin (0.2-1.0) mg/dL AST (15-37) U/L ALT (12-78) U/L Alkaline Phosphatase (46-116) U/L Serum Total Protein (6.4-8.2) gm/dL Albumin (3.4-5.0) g/dL Amylase (25-115) U/L Lipase (73-393) U/L Ur Collection Type CCMS Urine Color YELLOW (YELLOW) Urine Appearance HAZY (CLEAR) Urine pH 5.0 (5-6) Ur Specific [place] 1.051 (1.005-1.025) Urine Protein NEGATIVE (Negative) Urine Ketones NEGATIVE (NEGATIVE) Urine Blood 250 (0-5) Jose Angel/ul Urine Nitrite NEGATIVE (NEGATIVE) Urine Bilirubin NEGATIVE (NEGATIVE) Urine Urobilinogen NORMAL (0-1) mg/dL Ur Leukocyte Esterase 1+ (NEGATIVE) Urine Microscopic RBC 5-10 (0-2) /HPF Urine Microscopic WBC 5-10 (0-5) /HPF Ur Epithelial Cells MODERATE (FEW) /HPF Urine Bacteria MODERATE (NEGATIVE) /HPF Urine Mucus MODERATE (NEGATIVE) /HPF Urine Culture Reflexed YES (NO) Urine Glucose NEGATIVE (NEGATIVE) mg/dL Urine HCG, Qual NEGATIVE (Negative) Urine Opiates Level NEG. (NEGATIVE) Ur Methadone NEG. (NEGATIVE) Urine Barbiturates NEG. (NEGATIVE) Ur Phencyclidine (PCP) NEG. (NEGATIVE) Urine Amphetamine POS. (NEGATIVE) U Benzodiazepine Level POS. (NEGATIVE) Urine Cocaine NEG. (NEGATIVE) Urine Marijuana (THC) NEG. (NEGATIVE) Specimen Received 1250 10/06/17 10/06/17 10/06/17 Range/Units 12:50 12:50 WBC 11.4 H (4.0-10.5) K/mm3 RBC 4.29 (4.1-5.4) M/mm3 Hgb 13.6 (12.0-16.0) gm/dl Hct 40.0 (35-47) % MCV 93.2 (78-100) fl MCH 31.7 (26-32) pg MCHC 34.0 (32-36) g/dl RDW 11.5 (11.5-14.0) % Plt Count 298 (150-450) K/mm3 MPV 9.3 (6-9.5) fl Gran % 62.6 (36.0-66.0) % Lymphocytes % 31.7 (24.0-44.0) % Monocytes % 4.7 (0.0-12.0) % Eosinophils % 0.7 (0.00-5.0) % Basophils % 0.3 (0.0-0.4) % Basophils # 0.03 (0-0.4) Sodium 137 (136-145) mEq/L Potassium 3.3 L (3.5-5.1) mEq/L Chloride 101 (98-107) mEq/L Carbon Dioxide 23.8 (21-32) mEq/L Anion Gap 15.2 H (5-15) MEQ/L BUN 11 (9-20) mg/dL Creatinine 0.81 (0.55-1.30) mg/dl Estimated GFR > 60 ML/MIN Glucose 93 (70-110) MG/DL Calcium 9.3 (8.5-10.1) mg/dL Total Bilirubin 0.50 (0.2-1.0) mg/dL AST 19 (15-37) U/L ALT 33 (12-78) U/L Alkaline Phosphatase 46 (46-116) U/L Serum Total Protein 8.2 (6.4-8.2) gm/dL Albumin 4.4 (3.4-5.0) g/dL Amylase 49 (25-115) U/L Lipase 118 (73-393) U/L Ur Collection Type Urine Color (YELLOW) Urine Appearance (CLEAR) Urine pH (5-6) Ur Specific [place] (1.005-1.025) Urine Protein (Negative) Urine Ketones (NEGATIVE) Urine Blood (0-5) Jose Angel/ul Urine Nitrite (NEGATIVE) Urine Bilirubin (NEGATIVE) Urine Urobilinogen (0-1) mg/dL Ur Leukocyte Esterase (NEGATIVE) Urine Microscopic RBC (0-2) /HPF Urine Microscopic WBC (0-5) /HPF Ur Epithelial Cells (FEW) /HPF Urine Bacteria (NEGATIVE) /HPF Urine Mucus (NEGATIVE) /HPF Urine Culture Reflexed (NO) Urine Glucose (NEGATIVE) mg/dL Urine HCG, Qual (Negative) Urine Opiates Level (NEGATIVE) Ur Methadone (NEGATIVE) Urine Barbiturates (NEGATIVE) Ur Phencyclidine (PCP) (NEGATIVE) Urine Amphetamine (NEGATIVE) U Benzodiazepine Level (NEGATIVE) Urine Cocaine (NEGATIVE) Urine Marijuana (THC) (NEGATIVE) Specimen Received - Progress Progress: improved Progress Note: 10/06/17 16:05 ADMINISTERED IV NORMAL SALINE 1 LITER OVER 1 HOUR, PATIENT APPEARS IN NO DISTRESS. TORADOL 30MG IV, ROCEPHIN 1GM IVPB 10/06/17 16:16 Counseled pt/family regarding: lab results, diagnosis, need for follow-up, rad results - Departure Time of Disposition: 16:20 Departure Disposition: Home Clinical Impression: ABDOMINAL PAIN, URINARY TRACT INFECTION Condition: Stable Critical Care Time: No Referrals: SANDER DANIELS [Primary Care Provider] - Instructions: Kidney Stones Additional Instructions: FOLLOWUP WITH YOUR PRIMARY HEALTH CARE PROVIDER FOR REVIEW OF YOUR EMERGENCY VISIT INCLUDING CT SCANS AND LAB TEST. PEPCID 20MG TWICE DAILY FOR 2 WEEKS. ANTIBIOTIC MACROBID 100MG TWICE DAILY FOR 10 DAYS. TORADOL 10MG EVERY 6 HOURS FOR PAIN. ZOFRAN 4 MG EVERY 4 HOURS FOR NAUSEA. Prescriptions: Ondansetron [Zofran Odt] 4 mg PO Q4HPRN PRN #6 tab.rapdis PRN Reason: Nausea Ketorolac Tromethamine [Toradol] 10 mg PO Q6HPRN PRN #20 tablet PRN Reason: Pain Famotidine 20 mg [Pepcid 20 MG] 20 mg PO BID #30 tablet Nitrofurantoin Macro 100 mg [Macrobid 100MG Capsule] 100 mg PO BID #20 capsule
[2017-10-06 13:17] LABS: Bilirubin NEGATIVE (NEGATIVE); Blood 250 Ery/ul (0-5); COMPLETE URINE MICROSCOPIC? YES; Collection Type CCMS; Glucose NEGATIVE (NEGATIVE); Leukocyte Esterase 1+ (NEGATIVE)
[2017-10-06 13:32] LABS: BASOPHIL % 0.3 % (0.0-0.4); Eosinophil % 0.7 % (0.00-5.0); Granulocytes % 62.6 % (36.0-66.0); Lymphocytes % 31.7 % (24.0-44.0); Mean Cell Volume 93.2 fl (78-100); Mean Corpuscular Hemoglobin 31.7 pg (26-32); Mean Platelet Volume 9.3 fl (6-9.5); Monocytes % 4.7 % (0.0-12.0); Platelet Count 298 K/mm3 (150-450); Red Blood Count 4.29 M/mm3 (4.1-5.4); Red Cell Distribution Width 11.5 % (11.5-14.0); White Blood Count 11.4 K/mm3 (4.0-10.5)
[2017-10-06 13:37] LABS: Mucus MODERATE /HPF (NEGATIVE)
[2017-10-06 13:38] LABS: ADD URINE CULTURE? YES (NO); Bacteria MODERATE /HPF (NEGATIVE); Epithelial Cells MODERATE /HPF (FEW)
[2017-10-06 13:43] LABS: ALBUMIN 4.4 g/dL (3.4-5.0); ALKALINE PHOSPHATASE 46 U/L (46-116); ANION GAP 15.2 MEQ/L (5-15); BLOOD UREA NITROGEN 11 mg/dL (9-20); CHLORIDE 101 mEq/L (98-107); Carbon Dioxide 23.8 mEq/L (21-32); Glucose 93 MG/DL (70-110); LIPASE 118 U/L (73-393); Potassium 3.3 mEq/L (3.5-5.1); SGOT/AST 19 U/L (15-37); SGPT/ALT 33 U/L (12-78); SODIUM 137 mEq/L (136-145); Total Protein 8.2 gm/dL (6.4-8.2)
[2017-10-06] MEDS ORDERED: ROCEPHIN 1 Gm-D5w 50 ml Bag** 1 G/50 ML IVPB IV STA (13:59)
[2017-10-06] MEDS ORDERED: TORAdol 30 mg Injection IV ONE (14:02)
[2017-10-06] MEDS ORDERED: TORAdol 30 mg Injection ONE (14:04)
[2017-10-06] MEDS ORDERED: ROCEPHIN 1 Gm-D5w 50 ml Bag** 1 G/50 ML IVPB IV ONE (14:04)
[2017-10-06] MEDS ORDERED: Zofran 4 MG/2 ML VIAL IV ONE (14:05)
[2017-10-06] MEDS ORDERED: Zofran 4 MG/2 ML VIAL ONE (14:06)
[2017-10-06 16:12] VITALS: BP 131/93; PULSE 88
--- NOTE | 2017-10-06 16:56 | XRAY ---
Indication: Abdominal pain. History of stone. Multiple contiguous axial images obtained through the abdomen and pelvis prior to and following 80 cc Isovue 370 contrast only. Comparison: September 19, 2017. Lung bases are clear. Heart is not enlarged. Previous distal left UVJ calculus not seen presumably from recent passage. Stable nonobstructing bilateral renal micro-calculi and right renal scarring. Noncontrasted stomach and bowel loops appear nonobstructed. Normal appendix. No free fluid/air. Remaining liver, gallbladder, pancreas, spleen, adrenal glands, kidneys, ureters, bladder, uterus, and aorta appear unremarkable. No pathologic retroperitoneal lymphadenopathy. Osseous structures intact. Impression: 1. Stable nonobstructing bilateral renal micro-calculi. 2. No new or acute intra-abdominal/pelvic abnormalities. Comment: Preliminary interpretation was made by [facility]. No critical discrepancy. CTDI 23.22
== END 2017-10-06 16:24 | disposition home or self-care (01) ==
LOC: ED 12:38
DX: R10.9 Unspecified abdominal pain (principal); N39.0 Urinary tract infection, site not specified
CPT/HCPCS: 36000; 36415; 74178; 80053; 80307; 81000; 82150; 83690; 84703; 85025; 87086; 96360; 96365; 96374; 96375; 99284; J0696; J1885; J2405

== ENCOUNTER 2017-10-16 05:46 | Day surgery (SDC) | payer BC, OTHER ==
[2017-10-16] MEDS ORDERED: DIPRIVAN 200 MG/20 ML IV ONE (05:47)
[2017-10-16] MEDS ORDERED: Ketamine HCl 50 MG/ML IJ ONE (05:47)
[2017-10-16] MEDS ORDERED: Lactated Ringers 1,000 ML IV SCH (06:30)
--- NOTE | 2017-10-16 08:51 | OP ---
SURGERY DATE/TIME: 10/16/2017811 PREOPERATIVE DIAGNOSIS: Epigastric pain. POSTOPERATIVE DIAGNOSIS: Gastritis. PROCEDURE: Esophagogastroduodenoscopy with biopsy. SURGEON: Dr. Valdez. ANESTHESIA: Medications were given by the anesthesia department. BRIEF HISTORY: The patient is a 22 year old white female presenting now with reports of epigastric pain. She reports that she does take [id number] Excedrin on a daily basis for headaches. The patient reports she also recently had a kidney stone and has had surgery for stent placement at that time. The patient was felt the need have endoscopic evaluation. She was appraised of the risks of the procedure including the risk of perforation, phlebitis, untoward reaction to medication, bleeding and missed lesions. The patient verbalized her understanding and desired to have the procedure performed. DESCRIPTION OF PROCEDURE: The patient was given the medications by the anesthesia department. She had continuous pulse oximetry, ECG monitoring, intermittent blood pressure monitoring and tidal CO2 monitoring during the examination. She was placed in the left lateral decubitus position. A bite block was placed and the flexible Olympus gastroscope was used to intubate the oropharynx. The scope was easily introduced in the esophagus which appeared to be normal to the gastroesophageal junction where there appeared to be a small area of what appeared to be possibly developing Ingram's metaplasia and this was biopsied to determine whether there was any change present. The gastric stern was suctioned dry. The stomach was re-insufflated. The scope was passed along the greater curvature of the stomach to the antrum. The pylorus was encountered and intubated. The duodenum inspected and found to be normal. The scope is withdrawn towards the stomach. A retroflex view was obtained of the lesser curvature, fundus and cardia regions of the stomach and these appeared normal. The scope was redirected towards the gastric antrum and biopsies were obtained to rule out the presence of Helicobacter pylori-type organisms. The scope was then removed from the patient who tolerated the procedure well and was sent back to the [facility] in good condition.
[2017-10-16 09:44] VITALS: O2SAT 100
[2017-10-16 09:51] VITALS: BP 158/111; PULSE 74
== END 2017-10-16 09:30 | disposition home or self-care (01) ==
LOC: SDC 05:46
PROVIDERS: ATTEND Family Medicine
PROC: 0DB78ZX Excision of Stomach, Pylorus, Via Natural or Artificial Opening Endoscopic, Diagnostic (ICD-10-PCS; principal; 2017-10-16)
DX: K29.70 Gastritis, unspecified, without bleeding (principal)
CPT/HCPCS: 00740; 84703; J2704

== ENCOUNTER 2018-02-27 19:16 | Emergency (ER) | payer BC ==
[2018-02-27] MEDS ORDERED: GI COCKTAIL 45 ML (Maalox/Lidocaine) PO ONE (19:34)
[2018-02-27] MEDS ORDERED: Sodium Chloride 0.9% 1000 ML 1,000 ML IV STA (19:34)
[2018-02-27] MEDS ORDERED: Sodium Chloride 0.9% 1000 ML 1,000 ML ONE ×2 (19:49→20:21)
[2018-02-27 20:06] LABS: BASOPHIL % 0.1 % (0.0-0.4); Basophil (Absolute #) 0.01 (0-0.4); Eosinophil (Absolute #) 0.15 (0-0.5); Granulocyte Absolute (ANC) 10.96 (1.4-6.9); Granulocytes % 72.6 % (36.0-66.0); Hemoglobin 13.3 gm/dl (12.0-16.0); Lymphocyte (Absolute #) 3.19 (1.0-4.6); Lymphocytes % 21.2 % (24.0-44.0); Mean Cell Volume 93.5 fl (78-100); Mean Corpuscular Hemoglobin 31.9 pg (26-32); Mean Corpuscular Hgb Concent. 34.1 g/dl (32-36); Mean Platelet Volume 9.1 fl (6-9.5); Monocyte (Absolute #) 0.77 (0.0-1.3); Monocytes % 5.1 % (0.0-12.0); Platelet Count 246 K/mm3 (150-450); Red Blood Count 4.17 M/mm3 (4.1-5.4); Red Cell Distribution Width 12.4 % (11.5-14.0); White Blood Count 15.1 K/mm3 (4.0-10.5)
[2018-02-27] MEDS ORDERED: Zofran 4 MG/2 ML VIAL IV ONE (20:06)
[2018-02-27] MEDS ORDERED: Hydromorphone 1 mg/ml Ampule IV ONE (20:06)
--- NOTE | 2018-02-27 20:14 | ERPHSYRPT ---
- History of Present Illness Time Seen by Provider: 02/27/18 19:40 Historian: patient Exam Limitations: clinical condition Patient Subjective Stated Complaint: pt arrives to ER with c/o RLQ abdominal pain originating in right flank/back accompanied by vomiting, dysuria. Denies fever, diarrhea, hematuria, vaginal d/c or any other sx. Pt states has hx of kidney stones and believes this may be another. Triage Nursing Assessment: Abdomen tender to palpation. soft and non-distended. Does not appear to be in acute distress. Physician History: PATIENT WITH A HISTORY OF KIDNEY STONES COMPLAINS OF RIGHT FLANK PAIN X 2 DAYS SHARP IN CHARACTER, RADIATES AROUND FLANK INTO LOWER ABDOMEN. ASSOCIATED WITH NAUSEA AND EMESIS. FABRICIO URINARY SYMPTOMS. HAS HISTORY OF SURGICAL REMOVAL OF URETER STONES X 3. Timing/Duration: day(s) Activities at Onset: none Quality: sharpness, stabbing Abdominal Pain Onset Location: RLQ, flank Pain Radiation: flank Severity of Pain-Max: severe Severity of Pain-Current: severe Modifying Factors: Improves With: vomiting Associated Symptoms: nausea, vomiting Previous symptoms: same symptoms as today Allergies/Adverse Reactions: tramadol Allergy (Unknown, Verified 02/27/18 19:33) Home Medications: Atenolol 50 mg [Tenormin 50 mg] 50 mg PO BID 12/02/16 [History] Sertraline HCl 50 mg [Zoloft 50 mg Tablet] 50 mg PO DAILY 12/02/16 [History] Alprazolam 1 mg [Xanax 1 mg] 1 mg PO HS 02/22/17 [History] Simvastatin 20 mg PO DAILY 02/22/17 [History] Dextroamphetamine/Amphetamine [Adderall 20 mg Tablet] 20 mg PO DAILY 09/15/17 [ History] Norgestimate-Ethinyl Estradiol [Tri-Estarylla Tablet] 1 tab PO DAILY 10/12/17 [ History] Losartan Potassium [Losartan Potassium] 50 mg PO DAILY 02/27/18 [History] hydroCHLOROthiazide [Hydrochlorothiazide] 12.5 mg PO DAILY 02/27/18 [History] Hx Tetanus, Diphtheria Vaccination/Date Given: Yes Hx Influenza Vaccination/Date Given: No Hx Pneumococcal Vaccination/Date Given: No - Review of Systems Constitutional: No Fever, No Chills Eyes: No Symptoms Ears, Nose, & Throat: No Symptoms Respiratory: No Symptoms, No Cough, No Dyspnea Cardiac: No Symptoms, No Chest Pain, No Edema, No Syncope Abdominal/Gastrointestinal: Abdominal Pain, Nausea, Vomiting, No Diarrhea Genitourinary Symptoms: Flank Pain, No Dysuria Musculoskeletal: No Back Pain, No Neck Pain Skin: No Rash Neurological: No Dizziness, No Focal Weakness, No Sensory Changes Psychological: No Symptoms Endocrine: No Symptoms All Other Systems: Reviewed and Negative - Past Medical History Pertinent Past Medical History: Yes Neurological History: Migraines ENT History: No Pertinent History Cardiac History: High Cholesterol, Hypertension, Other Respiratory History: No Pertinent History Endocrine Medical History: No Pertinent History Musculoskeletal History: No Pertinent History GI Medical History: No Pertinent History History: No Pertinent History Psycho-Social History: No Pertinent History Female Reproductive Disorders: No Pertinent History Other Medical History: heart valve problems. - Past Surgical History Past Surgical History: Yes Neuro Surgical History: No Pertinent History Cardiac: No Pertinent History Respiratory: No Pertinent History Gastrointestinal: No Pertinent History Genitourinary: Other Musculoskeletal: No Pertinent History Female Surgical History: Section Other Surgical History: kidney stone removal ESWL. - Social History Smoking Status: Never smoker Exposure to second hand smoke: No Drug Use: none Patient Lives Alone: No - Female History Hx Last Menstrual Period: 2.5 weeks ago Hx Now: No - Nursing Vital Signs Nursing Vital Signs: Initial Vital Signs Temperature 98.9 F 02/27/18 19:21 Pulse Rate 78 02/27/18 19:21 Respiratory Rate 18 02/27/18 19:21 Blood Pressure 151/99 02/27/18 19:21 O2 Sat by Pulse Oximetry 97 02/27/18 19:21 Pain Scale Pain Intensity 9 - Physical Exam General Appearance: moderate distress Eye Exam: PERRL/EOMI, eyes nml inspection Ears, Nose, Throat Exam: normal ENT inspection, pharynx normal, moist mucous membranes Neck Exam: normal inspection, non-tender, supple, full range of motion Respiratory Exam: normal breath sounds, lungs clear, No respiratory distress Cardiovascular Exam: regular rate/rhythm, normal heart sounds Gastrointestinal/Abdomen Exam: soft, normal bowel sounds, tenderness (RIGHT LOWER QUAD TENDERNESS) Back Exam: CVA tenderness (MODERATE CVA TENDERNESS) Extremity Exam: normal inspection, normal range of motion, pelvis stable Neurologic Exam: alert, 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, cooperative, normal mood/affect, nml cerebellar function, sensation nml, No motor deficits Skin Exam: normal color, warm, dry SpO2 Interpretation: normal SpO2: 97 Oxygen Delivery: Room Air - CT Exams Abdomen/Pelvis CT Interpretation: Discussed w/radiologist (NEW 3MM RIGHT POSTERIOR BLADDER CALCULUS ASLO MILD RIGTH HYDRONEPHROSIS WITH MINIMAL HYDROURETER FROM RECENT PASSAGE. ADDITIONAL RIGHT MICROCALCULI, NORMAL APPENDIX) Ordered Tests: Active Orders 24 hr Category Date Time Status ABDOMEN AND PELVIS W/0 CONTRAS [CT] Stat Exams 02/27/18 20:06 Taken AMYLASE Stat Lab 02/27/18 20:01 Completed BMP Stat Lab 02/27/18 20:01 Completed CBC W DIFF Stat Lab 02/27/18 20:01 Completed CULTURE,URINE Stat Lab 02/27/18 20:20 Received LIPASE Stat Lab 02/27/18 20:01 Completed UA W/ MICROSCOPIC Stat Lab 02/27/18 20:20 Completed Medication Summary Discontinued Medications Generic Name Dose Route Start Last Admin Trade Name Freq PRN Reason Stop Dose Admin Hydromorphone HCl 1 mg 02/27/18 20:06 02/27/18 20:33 Hydromorphone 1 Mg/Ml Ampule IV 02/27/18 20:07 1 mg STAT ONE Administration Hydromorphone HCl Confirm 02/27/18 20:21 Hydromorphone 1 Mg/Ml Ampule Administered 02/27/18 20:22 Dose 1 mg .ROUTE .STK-MED ONE Sodium Chloride 1,000 mls @ 500 mls/hr 02/27/18 19:34 02/27/18 19:52 Sodium Chloride 0.9% 1000 Ml IV 02/27/18 21:33 500 mls/hr .Q2H STA Administration Sodium Chloride Confirm 02/27/18 19:49 Sodium Chloride 0.9% 1000 Ml Administered 02/27/18 19:50 Dose 1,000 mls @ ud .ROUTE .STK-MED ONE Sodium Chloride Confirm 02/27/18 20:21 Sodium Chloride 0.9% 1000 Ml Administered 02/27/18 20:22 Dose 1,000 mls @ ud .ROUTE .STK-MED ONE Magnesium Hydroxide 45 ml 02/27/18 19:34 02/27/18 19:53 Gi Cocktail 45 Ml (Maalox/Lidocaine) PO 02/27/18 19:35 Not Given STAT ONE Ondansetron HCl 4 mg 02/27/18 20:06 02/27/18 20:35 Zofran 4 Mg/2 Ml Vial IV 02/27/18 20:07 4 mg STAT ONE Administration Ondansetron HCl Confirm 02/27/18 20:20 Zofran 4 Mg/2 Ml Vial Administered 02/27/18 20:21 Dose 4 mg .ROUTE .STK-MED ONE Lab/Rad Data: Laboratory Result Diagrams 02/27/18 20:01 02/27/18 20:01 Laboratory Results 02/27/18 02/27/18 02/27/18 Range/Units 20:20 20:01 20:01 WBC 15.1 H (4.0-10.5) K/mm3 RBC 4.17 (4.1-5.4) M/mm3 Hgb 13.3 (12.0-16.0) gm/dl Hct 39.0 (35-47) % MCV 93.5 (78-100) fl MCH 31.9 (26-32) pg MCHC 34.1 (32-36) g/dl RDW 12.4 (11.5-14.0) % Plt Count 246 (150-450) K/mm3 MPV 9.1 (6-9.5) fl Gran % 72.6 H (36.0-66.0) % Eos # (Auto) 0.15 (0-0.5) Absolute Lymphs (auto) 3.19 (1.0-4.6) Absolute Monos (auto) 0.77 (0.0-1.3) Lymphocytes % 21.2 L (24.0-44.0) % Monocytes % 5.1 (0.0-12.0) % Eosinophils % 1.0 (0.00-5.0) % Basophils % 0.1 (0.0-0.4) % Absolute Granulocytes 10.96 H (1.4-6.9) Basophils # 0.01 (0-0.4) Sodium 137 (137-145) mmol/L Potassium 3.8 (3.5-5.1) mmol/L Chloride 101 (98-107) mmol/L Carbon Dioxide 25 (22-30) mmol/L Anion Gap 14.8 (5-15) MEQ/L BUN 12 (7-17) mg/dL Creatinine 0.55 (0.52-1.04) mg/dL Estimated GFR > 60.0 ML/MIN Glucose 91 (74-106) mg/dL Calcium 9.1 (8.4-10.2) mg/dL Amylase 86 (30-110) U/L Lipase 91 (23-300) U/L Ur Collection Type CCMS Urine Color YELLOW (YELLOW) Urine Appearance CLOUDY (CLEAR) Urine pH 6.5 (5-6) Ur Specific [place] 1.010 (1.005-1.025) Urine Protein TRACE (Negative) Urine Ketones NEGATIVE (NEGATIVE) Urine Blood 250 (0-5) Jose Angel/ul Urine Nitrite NEGATIVE (NEGATIVE) Urine Bilirubin NEGATIVE (NEGATIVE) Urine Urobilinogen NORMAL (0-1) mg/dL Ur Leukocyte Esterase TRACE (NEGATIVE) Urine Microscopic RBC >100 (0-2) /HPF Urine Microscopic WBC 2-5 (0-5) /HPF Ur Epithelial Cells FEW (FEW) /HPF Urine Culture Reflexed YES (NO) Urine Glucose NEGATIVE (NEGATIVE) mg/dL Specimen Received [id number] - Progress Progress: improved, pain not gone completely Progress Note: 02/27/18 22:09 IV NORMAL SALINE 1 LITER BOLUS, ZOFRAN 4MG, DILAUDID 1MG, TORADOL 30 MG IV WITH MODERATE PAIN RELIEF. Counseled pt/family regarding: lab results, diagnosis, need for follow-up, rad results - Departure Time of Disposition: 22:20 Departure Disposition: Home Clinical Impression: ACUTE RENAL COLIC, PASSAGE OF URETER CALCULI Condition: Stable Critical Care Time: No Referrals: SANDER DANIELS [Primary Care Provider] - Additional Instructions: CONSULT YOUR PRIMARY CARE PROVIDER FOR FOLLOWUP IN 1 WEEK. NORCO 5/325 EVERY 4- 6 HOURS NEEDED FOR PAIN. ZOFRAN 4MG EVERY 4 HOURS FOR NAUSEA NEEDED. VOID THROUGH A STRAINER FOR 72 HOURS. RETURN VOIDED CALCULUS TO LAB FOR ANALYSIS. Prescriptions: Ondansetron ODT 4 MG [Zofran Odt 4 mg] 4 mg PO Q6H PRN PRN #10 tab.rapdis PRN Reason: Nausea Hydrocodone/Acetaminophen [[place] 5-325 Tablet] 1 each PO Q4-6HPRN PRN #8 tablet MDD 4 PRN Reason: Pain
[2018-02-27] MEDS ORDERED: Zofran 4 MG/2 ML VIAL ONE (20:20)
[2018-02-27] MEDS ORDERED: Hydromorphone 1 mg/ml Ampule ONE (20:21)
[2018-02-27 20:29] LABS: AMYLASE 86 U/L (30-110); ANION GAP 14.8 MEQ/L (5-15); BLOOD UREA NITROGEN 12 mg/dL (7-17); CHLORIDE 101 mmol/L (98-107); Calcium 9.1 mg/dL (8.4-10.2); Carbon Dioxide 25 mmol/L (22-30); Creatinine 1 0.55 mg/dL (0.52-1.04); Glucose 91 mg/dL (74-106); LIPASE 91 U/L (23-300); Potassium 3.8 mmol/L (3.5-5.1); SODIUM 137 mmol/L (137-145)
[2018-02-27 20:46] LABS: Appearance CLOUDY (CLEAR); Bilirubin NEGATIVE (NEGATIVE); Blood 250 Ery/ul (0-5); Glucose NEGATIVE (NEGATIVE); Ketones NEGATIVE (NEGATIVE); Leukocyte Esterase TRACE (NEGATIVE); Nitrite NEGATIVE (NEGATIVE); Ph 6.5 (5-6); Protein,Urine Dip TRACE (Negative); Urobilinogen NORMAL mg/dL (0-1)
[2018-02-27 20:47] LABS: Epithelial Cells FEW /HPF (FEW); RBC >100 /HPF (0-2)
[2018-02-27] MEDS ORDERED: NORCO 5/325 MG PO ONE (22:17)
[2018-02-27] MEDS ORDERED: NORCO 5/325 MG ONE (22:22)
[2018-02-27 22:43] VITALS: BP 143/93; PULSE 76; O2SAT 100
--- NOTE | 2018-02-28 08:57 | XRAY ---
Indication: Right lower quadrant pain. History kidney stone. Multiple contiguous axial images obtained through the abdomen and pelvis without contrast as ordered. Comparison: October 06, 2017. Lung bases are clear. Heart is not enlarged. New 3 mm right posterior urinary bladder calculus. There is also mild right sided hydronephrosis and right ureteral prominence from recent passage of said calculus. Additional 4 mm right lower renal calculus. Noncontrasted stomach and bowel loops appear nonobstructed. Normal appendix. Tiny cul-de-sac fluid presumed physiologic from rupture/leaking cyst. Remaining liver, gallbladder, pancreas, spleen, adrenal glands, left kidney, left ureter, uterus, and aorta appear unremarkable for noncontrast exam. Osseous structures intact. Impression: 1. 3 mm urinary bladder calculus. Mild right-sided hydronephrosis and minimal hydroureter from recent passage. Additional right renal micro-calculus. 2. Tiny cul-de-sac fluid presumed from rupture/leaking cyst. CT DI 22.16
== END 2018-02-27 22:43 | disposition home or self-care (01) ==
LOC: ED 19:16
DX: N23 Unspecified renal colic (principal); N20.1 Calculus of ureter; R10.31 Right lower quadrant pain; R11.2 Nausea with vomiting, unspecified; Z87.442 Personal history of urinary calculi; Z79.899 Other long term (current) drug therapy
CPT/HCPCS: 36000; 36415; 74176; 80048; 81000; 82150; 83690; 85025; 87086; 96374; 96375; 99284; J1170; J2405; A9270-GY

== ENCOUNTER 2018-05-27 18:31 | Emergency (ER) | payer BC ==
[2018-05-27] MEDS ORDERED: MORPHINE SULFATE 4 MG INJ ONE (18:51)
[2018-05-27] MEDS ORDERED: MORPHINE SULFATE 4 MG INJ IM ONE (19:06)
[2018-05-27] MEDS ORDERED: TORAdol 30 mg Injection IM ONE (19:56)
--- NOTE | 2018-05-27 19:56 | ERPHSYRPT ---
- History of Present Illness Time Seen by Provider: 05/27/18 19:40 Source: patient Exam Limitations: no limitations Patient Subjective Stated Complaint: pt fell of porch step and twisted right ankle. now has pain to ankle Triage Nursing Assessment: pt alert arrived per wc, resp easy, skin w/d/p. has large amt of swelling to outer aspect of right ankle, nailbeds pink , foot warm Physician History: The patient is a 23-year-old female with her parents complaining that she missed a step on her stairway causing her to twist her right ankle. Her right ankle is now swollen and painful. This happened an hour before arrival to the ER. She denies numbness or tingling. Her past medical history is significant for hypertension, high cholesterol, anxiety, depression, and ADD. Occurred: just prior to arrival Reason for Fall: slipped, fell from standing pos Injuries/Pain Location: lower extremity (right ankle) Loss of Consciousness: no loss of consciousness Quality: aching, sharpness Severity of Pain-Max: moderate Severity of Pain-Current: moderate Modifying Factors: Improves With: nothing Associated Symptoms (Fall): extremity injury, trouble walking Allergies/Adverse Reactions: tramadol Allergy (Unknown, Verified 02/27/18 19:33) Home Medications: Atenolol 50 mg [Tenormin 50 mg] 50 mg PO BID 12/02/16 [History] Sertraline HCl 50 mg [Zoloft 50 mg Tablet] 50 mg PO DAILY 12/02/16 [History] Alprazolam 1 mg [Xanax 1 mg] 1 mg PO HS 02/22/17 [History] Simvastatin 20 mg PO DAILY 02/22/17 [History] Dextroamphetamine/Amphetamine [Adderall 20 mg Tablet] 20 mg PO DAILY 09/15/17 [ History] Norgestimate-Ethinyl Estradiol [Tri-Estarylla Tablet] 1 tab PO DAILY 10/12/17 [ History] Losartan Potassium 50 mg PO DAILY 02/27/18 [History] hydroCHLOROthiazide [Hydrochlorothiazide] 12.5 mg PO DAILY 02/27/18 [History] Hx Tetanus, Diphtheria Vaccination/Date Given: Yes Hx Influenza Vaccination/Date Given: No Hx Pneumococcal Vaccination/Date Given: No Immunizations Up to Date: Yes - Review of Systems Constitutional: No Fever, No Chills Eyes: No Symptoms Ears, Nose, & Throat: No Symptoms Respiratory: No Cough, No Dyspnea Cardiac: No Chest Pain, No Edema, No Syncope Abdominal/Gastrointestinal: No Abdominal Pain, No Nausea, No Vomiting, No Diarrhea Genitourinary Symptoms: No Dysuria Musculoskeletal: Fall, Injury, Joint Pain, Joint Swelling Skin: No Rash Neurological: No Dizziness, No Focal Weakness, No Sensory Changes Psychological: No Symptoms Endocrine: No Symptoms Hematologic/Lymphatic: No Symptoms Immunological/Allergic: No Symptoms All Other Systems: Reviewed and Negative - Past Medical History Pertinent Past Medical History: Yes Neurological History: Migraines ENT History: No Pertinent History Cardiac History: High Cholesterol, Hypertension, Other Respiratory History: No Pertinent History Endocrine Medical History: No Pertinent History Musculoskeletal History: No Pertinent History GI Medical History: No Pertinent History History: No Pertinent History Psycho-Social History: No Pertinent History Female Reproductive Disorders: No Pertinent History Other Medical History: heart valve problems. - Past Surgical History Past Surgical History: Yes Neuro Surgical History: No Pertinent History Cardiac: No Pertinent History Respiratory: No Pertinent History Gastrointestinal: No Pertinent History Genitourinary: Other Musculoskeletal: No Pertinent History Female Surgical History: Section Other Surgical History: kidney stone removal ESWL. - Social History Smoking Status: Current every day smoker Exposure to second hand smoke: Yes Drug Use: none Patient Lives Alone: No - Female History Hx Last Menstrual Period: march Hx Now: No - Nursing Vital Signs Nursing Vital Signs: Initial Vital Signs Temperature 98.0 F 05/27/18 18:52 Pulse Rate 85 05/27/18 18:52 Respiratory Rate 20 05/27/18 18:52 Blood Pressure 158/100 05/27/18 18:52 O2 Sat by Pulse Oximetry 99 05/27/18 18:52 Pain Scale Pain Intensity 8 - [place] Coma Score Best Eye Response ([place]): (4) open spontaneously Best Verbal Response ([place]): (5) oriented Best Motor Response ([place]): (6) obeys commands [place] Total: 15 - Physical Exam General Appearance: no apparent distress, alert Head Injury: no evidence of injury Eye Exam: PERRL/EOMI ENT Exam: airway nml Neck Exam: normal inspection, No tenderness Respiratory/Chest Exam: normal breath sounds, No chest tenderness, No respiratory distress Cardiovascular Exam: normal heart sounds, regular rate/rhythm Gastrointestinal Exam: soft, No tenderness, No distention, No guarding, No ecchymosis Rectal Exam: not done Back Exam: normal inspection, No vertebral tenderness Extremity Exam: joint swelling (right ankle), limited range of motion (right ankle), evidence of injury (right ankle), pain with movement (right ankle), swelling (right ankle), tenderness (right ankle) Neurologic Exam: alert, 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, cooperative, sensation nml, No motor deficits Skin Exam: normal color, warm, dry SpO2 Interpretation: normal SpO2: 99 - Radiology Exams Right Ankle X-ray Interpretation: Interpreted by me, Negative, No Fracture Ordered Tests: Active Orders 24 hr Category Date Time Status ANKLE (3 VIEWS) Stat Exams 05/27/18 19:17 Taken Medication Summary Discontinued Medications Generic Name Dose Route Start Last Admin Trade Name Freq PRN Reason Stop Dose Admin Morphine Sulfate Confirm 05/27/18 18:51 Morphine Sulfate 4 Mg Inj Administered 05/27/18 18:52 Dose 4 mg .ROUTE .STK-MED ONE Morphine Sulfate 4 mg 05/27/18 19:06 05/27/18 19:08 Morphine Sulfate 4 Mg Inj IM 05/27/18 19:07 4 mg STAT ONE Administration - Progress Progress: improved Counseled pt/family regarding: need for follow-up, rad results - Departure Time of Disposition: 20:04 Departure Disposition: Home Clinical Impression: Moderate right ankle sprain Condition: Stable Critical Care Time: No Referrals: SANDER DANIELS [Primary Care Provider] - Additional Instructions: You have a moderate sprain of your right ankle. You were given morphine 4 mg and Toradol 60 mg in the ER. Keep the Wade wrap applied to your right ankle as needed. Apply ice to the ankle for 15-20 minutes 4 times a day for 3 days. Use crutches as needed. Take naproxen 500 mg 2 times a day as needed. Keep your ankle elevated for the next 2 or 3 days. Follow-up with your primary medical doctor in one week. Prescriptions: Naproxen 500 mg PO BID PRN #30 tablet.
[2018-05-27] MEDS ORDERED: TORAdol 30 mg Injection ONE (20:00)
[2018-05-27 20:21] VITALS: BP 133/81; PULSE 74; O2SAT 96
--- NOTE | 2018-05-28 08:55 | XRAY ---
Indication: Pain and swelling following twisting injury. Comparison: None 3 views of the right ankle demonstrates moderate anterior lateral soft tissue swelling and tiny posterior heel spur. No other bony, articular, or soft tissue abnormalities.
== END 2018-05-27 20:23 | disposition home or self-care (01) ==
LOC: ED 18:31
DX: S93.401A Sprain of unspecified ligament of right ankle, initial encounter (principal); M25.571 Pain in right ankle and joints of right foot; W10.8XXA Fall (on) (from) other stairs and steps, initial encounter; I10 Essential (primary) hypertension; E78.00 Pure hypercholesterolemia, unspecified; F41.9 Anxiety disorder, unspecified; F32.9 Major depressive disorder, single episode, unspecified; F98.8 Other specified behavioral and emotional disorders with onset usually occurring in childhood and adolescence; R26.2 Difficulty in walking, not elsewhere classified; Z79.899 Other long term (current) drug therapy; M25.471 Effusion, right ankle
CPT/HCPCS: 73610; 96372; 99284; J1885; J2270

== ENCOUNTER 2019-12-02 17:31 | Emergency (ER) | payer BC ==
[2019-12-02] MEDS ORDERED: Sodium Chloride 0.9% 1000 ML 1,000 ML IV STA (17:50)
[2019-12-02] MEDS ORDERED: Hydromorphone 1 mg/ml Ampule IV ONE (17:50)
[2019-12-02] MEDS ORDERED: Zofran 4 MG/2 ML VIAL IV ONE (17:50)
--- NOTE | 2019-12-02 17:56 | ERPHSYRPT ---
- History of Present Illness Time Seen by Provider: 12/02/19 17:45 Source: patient Exam Limitations: no limitations Timing/Duration: day(s) (3) Activites at Onset: none Quality: sharpness, stabbing Onset Location: right flank, abdominal pain Pain Radiation: none Severity of Pain-Max: severe Severity of Pain-Current: severe Prior abdominal problems: similar symptoms, other (kidney stones) Sexual intercourse history: non-contributory Modifying Factors: Improves With: movement, palpation Associated Symptoms: nausea, vomiting Allergies/Adverse Reactions: tramadol Allergy (Unknown, Verified 12/02/19 17:45) Home Medications: Atenolol 50 mg [Tenormin 50 mg] 50 mg PO BID 12/02/16 [History] Sertraline HCl 50 mg [Zoloft 50 mg Tablet] 100 mg PO DAILY 12/02/16 [History ] Dextroamphetamine/Amphetamine [Adderall 20 mg Tablet] 20 mg PO DAILY 09/15/17 [ History] Losartan Potassium 50 mg PO DAILY 02/27/18 [History] hydroCHLOROthiazide [Hydrochlorothiazide] 12.5 mg PO DAILY 02/27/18 [History] Hx Tetanus, Diphtheria Vaccination/Date Given: Yes Hx Influenza Vaccination/Date Given: No Hx Pneumococcal Vaccination/Date Given: No - Review of Systems Constitutional: No Fever, No Chills Eyes: No Symptoms Ears, Nose, & Throat: No Symptoms Respiratory: No Cough, No Dyspnea Cardiac: No Chest Pain, No Edema, No Syncope Abdominal/Gastrointestinal: Abdominal Pain, Nausea, Vomiting, No Diarrhea, No Constipation Genitourinary Symptoms: Flank Pain, No Dysuria Musculoskeletal: No Back Pain, No Neck Pain Skin: No Rash Neurological: No Dizziness, No Focal Weakness, No Sensory Changes Psychological: No Symptoms Endocrine: No Symptoms All Other Systems: Reviewed and Negative - Past Medical History Pertinent Past Medical History: Yes Neurological History: Migraines ENT History: No Pertinent History Cardiac History: High Cholesterol, Hypertension, Other Respiratory History: No Pertinent History Endocrine Medical History: No Pertinent History Musculoskeletal History: No Pertinent History GI Medical History: No Pertinent History History: No Pertinent History Psycho-Social History: No Pertinent History Female Reproductive Disorders: No Pertinent History Other Medical History: heart valve problems. - Past Surgical History Past Surgical History: Yes Neuro Surgical History: No Pertinent History Cardiac: No Pertinent History Respiratory: No Pertinent History Gastrointestinal: No Pertinent History Genitourinary: Other Musculoskeletal: No Pertinent History Female Surgical History: Section Other Surgical History: kidney stone removal ESWL. - Social History Smoking Status: Current every day smoker Exposure to second hand smoke: Yes Drug Use: none Patient Lives Alone: No - Nursing Vital Signs Nursing Vital Signs: Initial Vital Signs Temperature 98.7 F 12/02/19 17:48 Pulse Rate 104 H 12/02/19 17:48 Respiratory Rate 18 12/02/19 17:48 Blood Pressure 115/71 12/02/19 17:48 O2 Sat by Pulse Oximetry 97 12/02/19 17:48 Pain Scale Pain Intensity 8 - Physical Exam General Appearance: mild distress, alert Eye Exam: PERRL/EOMI, eyes nml inspection Ears, Nose, Throat Exam: normal ENT inspection, TMs normal, pharynx normal, moist mucous membranes Neck Exam: normal inspection, non-tender, supple, full range of motion Respiratory Exam: normal breath sounds, lungs clear, No respiratory distress Cardiovascular Exam: regular rate/rhythm, normal heart sounds, normal peripheral pulses Gastrointestinal/Abdomen Exam: soft, tenderness (diffuse), No distention, No mass, No guarding, No rebound Pelvic Exam: not done Rectal Exam: deferred Back Exam: normal inspection, normal range of motion, point tenderness (Rt flank area), No CVA tenderness, No vertebral tenderness Extremity Exam: normal inspection, normal range of motion, pelvis stable Neurologic Exam: alert, 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, cooperative, bit sander II-XII nml as tested, normal mood/affect, sensation nml, No motor deficits Skin Exam: normal color, warm, dry Lymphatic Exam: No adenopathy - Course Nursing assessment & vital signs reviewed: Yes - CT Exams Abdomen/Pelvis CT Interpretation: Other (Rt 4mm prox ureteral stone, mild hydronephro, renal edema, perinephric stranding.) Ordered Tests: Active Orders 24 hr Category Date Time Status IV Insertion STAT Care 12/02/19 17:50 Active ABDOMEN AND PELVIS W/0 CONTRAS [CT] Stat Exams 12/02/19 17:51 Taken BLOOD CULTURE Stat Lab 12/02/19 19:04 Received CBC W DIFF Stat Lab 12/02/19 18:12 Completed CMP Stat Lab 12/02/19 18:12 Completed CULTURE,URINE Stat Lab 12/02/19 17:48 Received HCG,QUALITATIVE URINE Stat Lab 12/02/19 17:48 Completed LIPASE Stat Lab 12/02/19 18:12 Completed Lactic Acid Stat Lab 12/02/19 20:14 Ordered Manual Differential NC Stat Lab 12/02/19 18:12 Completed PROTIME WITH INR Stat Lab 12/02/19 18:12 Completed UA W/RFX UR CULTURE Stat Lab 12/02/19 17:48 Completed Medication Summary Generic Name Dose Route Start Last Admin Trade Name Freq PRN Reason Stop Dose Admin Sodium Chloride 1,000 mls @ 200 mls/hr 12/02/19 19:30 12/02/19 19:25 Sodium Chloride 0.9% 1000 Ml IV 01/01/20 19:29 200 mls/hr .Q5H MATY Administration Discontinued Medications Generic Name Dose Route Start Last Admin Trade Name Freq PRN Reason Stop Dose Admin Hydromorphone HCl 1 mg 12/02/19 17:50 12/02/19 18:02 Hydromorphone 1 Mg/Ml Ampule IV 12/02/19 17:51 1 mg STAT ONE Administration Hydromorphone HCl Confirm 12/02/19 18:00 Hydromorphone 1 Mg/Ml Ampule Administered 12/02/19 18:01 Dose 1 mg .ROUTE .STK-MED ONE Sodium Chloride 1,000 mls @ 999 mls/hr 12/02/19 17:50 12/02/19 19:10 Sodium Chloride 0.9% 1000 Ml IV 12/02/19 18:50 Infused .Q1H1M STA Infusion Sodium Chloride Confirm 12/02/19 18:00 Sodium Chloride 0.9% 1000 Ml Administered 12/02/19 18:01 Dose 1,000 mls @ ud .ROUTE .STK-MED ONE Ceftriaxone Sodium/Dextrose 1 g in 50 mls @ 100 mls/hr 12/02/19 18:33 19:50 Rocephin 1 Gm-D5w 50 Ml Bag IV 12/02/19 19:02 Infused STAT ONE Infusion Ceftriaxone Sodium/Dextrose Confirm 12/02/19 19:10 Rocephin 1 Gm-D5w 50 Ml Bag Administered 12/02/19 19:11 Dose 1 g in 50 mls @ ud IV .STK-MED ONE Sodium Chloride Confirm 12/02/19 19:22 Sodium Chloride 0.9% 1000 Ml Administered 12/02/19 19:23 Dose 1,000 mls @ ud .ROUTE .STK-MED ONE Ketorolac Tromethamine 30 mg 12/02/19 19:22 12/02/19 19:25 Toradol 30 Mg Injection IV 12/02/19 19:23 30 mg STAT ONE Administration Ketorolac Tromethamine Confirm 12/02/19 19:24 Toradol 30 Mg Injection Administered 12/02/19 19:25 Dose 30 mg .ROUTE .STK-MED ONE Ondansetron HCl 4 mg 12/02/19 17:50 12/02/19 18:02 Zofran 4 Mg/2 Ml Vial IV 12/02/19 17:51 4 mg STAT ONE Administration Ondansetron HCl Confirm 12/02/19 18:01 Zofran 4 Mg/2 Ml Vial Administered 12/02/19 18:02 Dose 4 mg .ROUTE .STK-MED ONE Lab/Rad Data: Laboratory Result Diagrams 12/02/19 18:12 12/02/19 18:12 Laboratory Results 12/02/19 12/02/19 12/02/19 Range/Units 18:12 18:12 18:12 WBC 41.7 H* (4.0-10.5) K/mm3 RBC 4.40 (4.1-5.4) M/mm3 Hgb 14.5 (12.0-16.0) gm/dl Hct 41.6 (35-47) % MCV 94.5 (78-100) fl MCH 33.0 H (26-32) pg MCHC 34.9 (32-36) g/dl RDW 12.0 (11.5-14.0) % Plt Count 197 (150-450) K/mm3 MPV 9.3 (7.5-11.0) fl Absolute Granulocytes 40.03 H (1.4-6.9) Segmented Neutrophils 96 H (36.0-66.0) % Lymphocytes (Manual) 3 L (24-44) % Monocytes (Manual) 1 (0.0-12.0) % Platelet Estimate NORMAL (NORMAL) RBC Morphology ABNORMAL Anisocytosis 1+ PT 11.9 (9.95-12.35) SECONDS INR 1.05 (0.8-3.0) Sodium 131 L (137-145) mmol/L Potassium 3.3 L (3.5-5.1) mmol/L Chloride 90 L (98-107) mmol/L Carbon Dioxide 24 (22-30) mmol/L Anion Gap 20.8 H (5-15) MEQ/L BUN 33 H (7-17) mg/dL Creatinine 1.68 H (0.52-1.04) mg/dL Estimated GFR 39.1 ML/MIN Glucose 121 H (74-106) mg/dL Calcium 8.9 (8.4-10.2) mg/dL Total Bilirubin 1.50 H (0.2-1.3) mg/dL AST 47 H (14-36) U/L ALT 43 H (0-35) U/L Alkaline Phosphatase 106 (38-126) U/L Serum Total Protein 8.2 (6.3-8.2) g/dL Albumin 4.8 (3.5-5.0) g/dL Lipase 58 (23-300) U/L Urine Color (YELLOW) Urine Appearance (CLEAR) Urine pH (5-6) Ur Specific [place] (1.005-1.025) Urine Protein (Negative) Urine Ketones (NEGATIVE) Urine Blood (0-5) Jose Angel/ul Urine Nitrite (NEGATIVE) Urine Bilirubin (NEGATIVE) Urine Urobilinogen (0-1) mg/dL Ur Leukocyte Esterase (NEGATIVE) Urine WBC (Auto) (0-5) /HPF Urine RBC (Auto) (0-2) /HPF U Epithel Cells (Auto) (FEW) /HPF Urine Bacteria (Auto) (NEGATIVE) /HPF Urine Mucus (Auto) (NEGATIVE) /HPF Urine Culture Reflexed (NO) Urine Glucose (NEGATIVE) mg/dL Urine HCG, Qual (Negative) 12/02/19 12/02/19 Range/Units 17:48 17:48 WBC (4.0-10.5) K/mm3 RBC (4.1-5.4) M/mm3 Hgb (12.0-16.0) gm/dl Hct (35-47) % MCV (78-100) fl MCH (26-32) pg MCHC (32-36) g/dl RDW (11.5-14.0) % Plt Count (150-450) K/mm3 MPV (7.5-11.0) fl Absolute Granulocytes (1.4-6.9) Segmented Neutrophils (36.0-66.0) % Lymphocytes (Manual) (24-44) % Monocytes (Manual) (0.0-12.0) % Platelet Estimate (NORMAL) RBC Morphology Anisocytosis PT (9.95-12.35) SECONDS INR (0.8-3.0) Sodium (137-145) mmol/L Potassium (3.5-5.1) mmol/L Chloride (98-107) mmol/L Carbon Dioxide (22-30) mmol/L Anion Gap (5-15) MEQ/L BUN (7-17) mg/dL Creatinine (0.52-1.04) mg/dL Estimated GFR ML/MIN Glucose (74-106) mg/dL Calcium (8.4-10.2) mg/dL Total Bilirubin (0.2-1.3) mg/dL AST (14-36) U/L ALT (0-35) U/L Alkaline Phosphatase (38-126) U/L Serum Total Protein (6.3-8.2) g/dL Albumin (3.5-5.0) g/dL Lipase (23-300) U/L Urine Color NICOL (YELLOW) Urine Appearance TURBID (CLEAR) Urine pH 5.0 (5-6) Ur Specific [place] 1.019 (1.005-1.025) Urine Protein 100 (Negative) Urine Ketones NEGATIVE (NEGATIVE) Urine Blood LARGE (0-5) Jose Angel/ul Urine Nitrite NEGATIVE (NEGATIVE) Urine Bilirubin NEGATIVE (NEGATIVE) Urine Urobilinogen NEGATIVE (0-1) mg/dL Ur Leukocyte Esterase LARGE (NEGATIVE) Urine WBC (Auto) >100 (0-5) /HPF Urine RBC (Auto) 26-50 (0-2) /HPF U Epithel Cells (Auto) RARE (FEW) /HPF Urine Bacteria (Auto) MODERATE (NEGATIVE) /HPF Urine Mucus (Auto) SLIGHT (NEGATIVE) /HPF Urine Culture Reflexed YES (NO) Urine Glucose NEGATIVE (NEGATIVE) mg/dL Urine HCG, Qual NEGATIVE (Negative) - Progress Progress: improved Air Movement: good Progress Note: 12/02/19 20:15 Work up shows very high leukocytosis. BCx obtained and started on rocephin IV. CT shows 4mm prox rt ureteral stone. hydro+. perinephris stranding. Kidney stone + pyelonephritis. D/w Dr. bah who is inventory control clerk for Dr. Arora. Accepts pt for transfer of care for direct admit to [facility] under Dr. Arora's service. Blood Culture(s) Obtained: Yes Antibiotics given: Yes Discussed with Dr.: Other (Dr. Bah. Ok with tx plan. Will accept pt for direct admit under Dr. Arora's service.) Will see patient in: hospital (observation) Counseled pt/family regarding: lab results, diagnosis, rad results - Departure Departure Disposition: Transfer ([facility]) Clinical Impression: Kidney stone on right side, Pyelonephritis Condition: Stable Critical Care Time: No Referrals: EVELINE DANIELS [Primary Care Provider] -
[2019-12-02] MEDS ORDERED: Hydromorphone 1 mg/ml Ampule ONE (18:00)
[2019-12-02] MEDS ORDERED: Sodium Chloride 0.9% 1000 ML 1,000 ML ONE ×2 (18:00→19:22)
[2019-12-02] MEDS ORDERED: Zofran 4 MG/2 ML VIAL ONE (18:01)
[2019-12-02 18:17] LABS: Hematocrit 41.6 % (35-47); Hemoglobin 14.5 gm/dl (12.0-16.0); Mean Cell Volume 94.5 fl (78-100); Mean Corpuscular Hgb Concent. 34.9 g/dl (32-36); Mean Platelet Volume 9.3 fl (7.5-11.0); Platelet Count 197 K/mm3 (150-450)
[2019-12-02 18:19] LABS: Appearance TURBID (CLEAR); Bacteria MODERATE /HPF (NEGATIVE); Bilirubin NEGATIVE (NEGATIVE); Blood LARGE Ery/ul (0-5); Epithelial Cells RARE /HPF (FEW); Glucose NEGATIVE (NEGATIVE); Ketones NEGATIVE (NEGATIVE); Leukocyte Esterase LARGE (NEGATIVE); Mucus SLIGHT /HPF (NEGATIVE); Nitrite NEGATIVE (NEGATIVE); Protein,Urine Dip 100 (Negative); RBC 26-50 /HPF (0-2); Specific Gravity 1.019 (1.005-1.025); Urobilinogen NEGATIVE mg/dL (0-1); WBC >100 /HPF (0-5)
[2019-12-02 18:24] LABS: White Blood Count 41.7 K/mm3 (4.0-10.5)
[2019-12-02 18:25] LABS: ALBUMIN 4.8 g/dL (3.5-5.0); ANION GAP 20.8 MEQ/L (5-15); BILIRUBIN,TOTAL 1.5 mg/dL (0.2-1.3); Calcium 8.9 mg/dL (8.4-10.2); Creatinine 1 1.68 mg/dL (0.52-1.04); Potassium 3.3 mmol/L (3.5-5.1); Total Protein 8.2 g/dL (6.3-8.2)
[2019-12-02 18:28] LABS: INR 1.05 (0.8-3.0); PROTIME 11.9 SECONDS (9.95-12.35)
[2019-12-02] MEDS ORDERED: ROCEPHIN 1 Gm-D5w 50 ml Bag** 1 G/50 ML IVPB IV ONE ×2 (18:33→19:10)
[2019-12-02] MEDS ORDERED: TORAdol 30 mg Injection IV ONE (19:22)
[2019-12-02] MEDS ORDERED: TORAdol 30 mg Injection ONE (19:24)
[2019-12-02] MEDS ORDERED: Sodium Chloride 0.9% 1000 ML 1,000 ML IV SCH (19:30)
[2019-12-02 19:31] LABS: Lymphocytes 3 % (24-44); Monocyte 1 % (0.0-12.0); Neutrophils 96 % (36.0-66.0); Total Cells Counted 100
[2019-12-02 19:32] LABS: ANISOCYTOSIS 1+; Platelet Estimate NORMAL (NORMAL)
[2019-12-02 19:33] LABS: Absolute Neutrophil Ct (ANC) 40.03 (1.4-6.9)
[2019-12-02 21:27] VITALS: BP 106/77; PULSE 99; O2SAT 98
--- NOTE | 2019-12-03 08:40 | XRAY ---
Indication: Right flank pain. History kidney stones. Multiple contiguous axial images obtained through the abdomen and pelvis without contrast using renal stone protocol. Comparison: February 27, 2018. Lung bases are clear. Heart is not enlarged. Proximal right ureter demonstrates new 4 mm calculus, approximately L3 level. Right kidney is edematous with mild hydronephrosis, moderate perinephric stranding, and tiny perinephric fluid consistent with obstructive uropathy. No renal calculus or evidence for obstructive uropathy on the left. Noncontrasted stomach and bowel loops appear nonobstructed. Normal appendix. No free fluid/air. Mild fatty liver. Remaining liver, gallbladder, pancreas, spleen, adrenal glands, bladder, uterus, and aorta appear unremarkable for noncontrast exam. Osseous structures intact. Impression: 1. New 4 mm proximal right ureter calculus producing high-grade obstruction as detailed. 2. Fatty liver. 3. Remaining CT abdomen/pelvis without contrast exam is negative.
== END 2019-12-02 21:26 | disposition short-term general hospital (02) ==
LOC: ED 17:31
DX: N20.0 Calculus of kidney (principal); N12 Tubulo-interstitial nephritis, not specified as acute or chronic
CPT/HCPCS: 36000; 36415; 74176; 80053; 81001; 83605; 83690; 84703; 85025; 85610; 87040; 87077; 87086; 87186; 96360; 96361; 96365; 96374; 96375; 99285; J0696; J1170; J1885; J2405

== ENCOUNTER 2019-12-07 05:16 | Observation (INO) | payer BC, MEDICAID ==
[2019-12-07] MEDS ORDERED: Sodium Chloride 0.9% 1000 ML 1,000 ML IV STA (05:49)
[2019-12-07] MEDS ORDERED: TORAdol 30 mg Injection IV ONE (05:49)
[2019-12-07] MEDS ORDERED: Zofran 4 MG/2 ML VIAL IV ONE (05:49)
--- NOTE | 2019-12-07 05:58 | ERPHSYRPT ---
- History of Present Illness Time Seen by Provider: 12/07/19 05:53 Historian: patient Exam Limitations: no limitations Patient Subjective Stated Complaint: pt states she was in the er approx 4 days agoa and was transfered to [facility] for kidney stone and wbc count of 40,000. states she had stent placed and was dc'd home on antibiotics. has had increased pain since. Triage Nursing Assessment: pt alert and oreinted, answers questions approp. pt ambulatory with steady gait noted. respirations nonlabored with lungs cta. skin pink warm and dry. abd soft and nontender to light palpation. urine yellow and cloudy. Physician History: 24-year-old female with significant past medical history of recent kidney stone 4 days ago for which she came to the emergency room at [facility] found to have a right side ureteric stone for which she was transferred to [facility], where stent was placed and patient was discharged home with antibiotics. Since yesterday. Patient pain has increased. Patient states that she has not have a bowel movement since Sunday when she was here. She denies any blood in the urine, nausea, vomiting or diarrhea. Timing/Duration: today Quality: cramping Abdominal Pain Onset Location: flank (right ) Pain Radiation: no radiation Severity of Pain-Max: mild Severity of Pain-Current: moderate Modifying Factors: Improves With: nothing Associated Symptoms: denies symptoms Allergies/Adverse Reactions: tramadol Allergy (Unknown, Verified 12/07/19 05:40) Home Medications: Atenolol 50 mg [Tenormin 50 mg] 50 mg PO BID 12/02/16 [History] Sertraline HCl 50 mg [Zoloft 50 mg Tablet] 100 mg PO DAILY 12/02/16 [History ] Dextroamphetamine/Amphetamine [Adderall 20 mg Tablet] 20 mg PO DAILY 09/15/17 [ History] Losartan Potassium 50 mg PO DAILY 02/27/18 [History] hydroCHLOROthiazide [Hydrochlorothiazide] 12.5 mg PO DAILY 02/27/18 [History] Hydrocodone/APAP 5-325 Tab^^^ [[place] 5-325 Tablet^^^] 1 tab PO Q4HPRN PRN MDD 6 12/07/19 [History] Levofloxacin [Levaquin] 500 mg PO DAILY 12/07/19 [History] Hx Tetanus, Diphtheria Vaccination/Date Given: Yes Hx Influenza Vaccination/Date Given: No Hx Pneumococcal Vaccination/Date Given: No Immunizations Up to Date: Yes - Review of Systems Constitutional: No Fever, No Chills Eyes: No Symptoms Ears, Nose, & Throat: No Symptoms Respiratory: No Cough, No Dyspnea Cardiac: No Chest Pain, No Edema, No Syncope Abdominal/Gastrointestinal: Abdominal Pain, No Nausea, No Vomiting, No Diarrhea Genitourinary Symptoms: Flank Pain (right side), No Dysuria Musculoskeletal: No Back Pain, No Neck Pain Skin: No Rash Neurological: No Dizziness, No Focal Weakness, No Sensory Changes Psychological: No Symptoms Endocrine: No Symptoms All Other Systems: Reviewed and Negative - Past Medical History Pertinent Past Medical History: Yes Neurological History: Migraines ENT History: No Pertinent History Cardiac History: High Cholesterol, Hypertension, Other Respiratory History: No Pertinent History Endocrine Medical History: No Pertinent History Musculoskeletal History: No Pertinent History GI Medical History: No Pertinent History History: No Pertinent History Psycho-Social History: No Pertinent History Female Reproductive Disorders: No Pertinent History Other Medical History: heart valve problems. kidney stone recently - Past Surgical History Past Surgical History: Yes Neuro Surgical History: No Pertinent History Cardiac: No Pertinent History Respiratory: No Pertinent History Gastrointestinal: No Pertinent History Genitourinary: Other Musculoskeletal: No Pertinent History Female Surgical History: Section Other Surgical History: kidney stone removal ESWL. - Social History Smoking Status: Former smoker Exposure to second hand smoke: Yes Drug Use: none Patient Lives Alone: No - Female History Hx Last Menstrual Period: 2 weeks Hx Now: No - Nursing Vital Signs Nursing Vital Signs: Initial Vital Signs Temperature 98.5 F 12/07/19 05:29 Pulse Rate 98 H 12/07/19 05:29 Respiratory Rate 16 12/07/19 05:29 Blood Pressure 149/88 12/07/19 05:29 O2 Sat by Pulse Oximetry 95 12/07/19 05:29 Pain Scale Pain Intensity 8 - Physical Exam General Appearance: no apparent distress, alert Eye Exam: PERRL/EOMI, eyes nml inspection Ears, Nose, Throat Exam: normal ENT inspection, pharynx normal, moist mucous membranes Neck Exam: normal inspection, non-tender, supple, full range of motion Respiratory Exam: normal breath sounds, lungs clear, No respiratory distress Cardiovascular Exam: regular rate/rhythm, normal heart sounds Gastrointestinal/Abdomen Exam: soft, tenderness (right flank), No mass Back Exam: normal inspection, normal range of motion, No CVA tenderness, No vertebral tenderness Extremity Exam: normal inspection, normal range of motion, pelvis stable Neurologic Exam: alert, 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, cooperative, normal mood/affect, nml cerebellar function, sensation nml, No motor deficits Skin Exam: normal color, warm, dry SpO2: 95 - Course Nursing assessment & vital signs reviewed: Yes Ordered Tests: Active Orders 24 hr Category Date Time Status OBSTR/ACUTE ABDOMEN SERIES Stat Exams 12/07/19 05:50 Ordered CBC W DIFF Stat Lab 12/07/19 05:55 Completed CMP Stat Lab 12/07/19 05:55 Completed Manual Differential NC Stat Lab 12/07/19 05:55 Completed UA W/RFX UR CULTURE Stat Lab 12/07/19 06:23 Ordered Medication Summary Generic Name Dose Route Start Last Admin Trade Name Freq PRN Reason Stop Dose Admin Sodium Chloride 1,000 mls @ 999 mls/hr 12/07/19 05:49 12/07/19 06:04 Sodium Chloride 0.9% 1000 Ml IV 12/07/19 06:49 999 mls/hr .Q1H1M STA Administration Discontinued Medications Generic Name Dose Route Start Last Admin Trade Name Freq PRN Reason Stop Dose Admin Fentanyl Citrate 50 mcg 12/07/19 06:23 Sublimaze 100 Mcg/2 Ml IV 12/07/19 06:24 STAT ONE Sodium Chloride Confirm 12/07/19 06:00 Sodium Chloride 0.9% 1000 Ml Administered 12/07/19 06:01 Dose 1,000 mls @ ud .ROUTE .STK-MED ONE Ketorolac Tromethamine 30 mg 12/07/19 05:49 12/07/19 06:04 Toradol 30 Mg Injection IV 12/07/19 05:50 30 mg STAT ONE Administration Ketorolac Tromethamine Confirm 12/07/19 06:00 Toradol 30 Mg Injection Administered 12/07/19 06:01 Dose 30 mg .ROUTE .STK-MED ONE Ondansetron HCl 4 mg 12/07/19 05:49 12/07/19 06:04 Zofran 4 Mg/2 Ml Vial IV 12/07/19 05:50 4 mg STAT ONE Administration Ondansetron HCl Confirm 12/07/19 06:00 Zofran 4 Mg/2 Ml Vial Administered 12/07/19 06:01 Dose 4 mg .ROUTE .STK-MED ONE Lab/Rad Data: Laboratory Result Diagrams 12/07/19 05:55 12/07/19 05:55 Laboratory Results 12/07/19 12/07/19 Range/Units 05:55 05:55 WBC 20.3 H (4.0-10.5) K/mm3 RBC 4.02 L (4.1-5.4) M/mm3 Hgb 13.0 (12.0-16.0) gm/dl Hct 37.9 (35-47) % MCV 94.3 (78-100) fl MCH 32.3 H (26-32) pg MCHC 34.3 (32-36) g/dl RDW 12.4 (11.5-14.0) % Plt Count 168 (150-450) K/mm3 MPV 9.5 (7.5-11.0) fl Segmented Neutrophils 67 H (36.0-66.0) % Band Neutrophils 7 H (0.0-2.0) % Lymphocytes (Manual) 15 L (24-44) % Monocytes (Manual) 7 (0.0-12.0) % Atypical Lymphocytes 4 % Platelet Estimate NORMAL (NORMAL) RBC Morphology NORMAL Sodium 136 L (137-145) mmol/L Potassium 2.9 L* (3.5-5.1) mmol/L Chloride 99 (98-107) mmol/L Carbon Dioxide 29 (22-30) mmol/L Anion Gap 11.3 (5-15) MEQ/L BUN 11 (7-17) mg/dL Creatinine 0.95 (0.52-1.04) mg/dL Estimated GFR > 60.0 ML/MIN Glucose 107 H (74-106) mg/dL Calcium 9.6 (8.4-10.2) mg/dL Total Bilirubin 0.90 (0.2-1.3) mg/dL AST 60 H (14-36) U/L ALT 77 H (0-35) U/L Alkaline Phosphatase 135 H (38-126) U/L Serum Total Protein 7.3 (6.3-8.2) g/dL Albumin 4.3 (3.5-5.0) g/dL - Progress Progress: unchanged, pain not gone completely Discussed with Dr.: Gomez Counseled pt/family regarding: lab results, diagnosis, need for follow-up, rad results - Departure Departure Disposition: Observation Clinical Impression: Acute flank pain, Hypokalemia Condition: Fair Critical Care Time: No
[2019-12-07] MEDS ORDERED: Zofran 4 MG/2 ML VIAL ONE (06:00)
[2019-12-07] MEDS ORDERED: TORAdol 30 mg Injection ONE (06:00)
[2019-12-07] MEDS ORDERED: Sodium Chloride 0.9% 1000 ML 1,000 ML ONE (06:00)
[2019-12-07 06:04] LABS: Hematocrit 37.9 % (35-47); Mean Cell Volume 94.3 fl (78-100); Mean Corpuscular Hemoglobin 32.3 pg (26-32); Mean Corpuscular Hgb Concent. 34.3 g/dl (32-36); Mean Platelet Volume 9.5 fl (7.5-11.0); Platelet Count 168 K/mm3 (150-450); Red Blood Count 4.02 M/mm3 (4.1-5.4); Red Cell Distribution Width 12.4 % (11.5-14.0); White Blood Count 20.3 K/mm3 (4.0-10.5)
[2019-12-07 06:20] LABS: ALBUMIN 4.3 g/dL (3.5-5.0); ALKALINE PHOSPHATASE 135 U/L (38-126); ANION GAP 11.3 MEQ/L (5-15); BLOOD UREA NITROGEN 11 mg/dL (7-17); CHLORIDE 99 mmol/L (98-107); Calcium 9.6 mg/dL (8.4-10.2); Carbon Dioxide 29 mmol/L (22-30); Creatinine 1 0.95 mg/dL (0.52-1.04); Glucose 107 mg/dL (74-106); SGOT/AST 60 U/L (14-36); SGPT/ALT 77 U/L (0-35); SODIUM 136 mmol/L (137-145); Total Protein 7.3 g/dL (6.3-8.2)
[2019-12-07 06:22] LABS: Potassium 2.9 mmol/L (3.5-5.1)
[2019-12-07] MEDS ORDERED: SUBLIMAZE 100 MCG/2 ML IV ONE (06:23)
[2019-12-07 06:27] LABS: ATYPICAL LYMPHS 4 %; BAND 7 % (0.0-2.0); Lymphocytes 15 % (24-44); Monocyte 7 % (0.0-12.0); Neutrophils 67 % (36.0-66.0); Total Cells Counted 100
[2019-12-07 06:28] LABS: Platelet Estimate NORMAL (NORMAL)
[2019-12-07] MEDS ORDERED: SUBLIMAZE 100 MCG/2 ML ONE (06:33)
[2019-12-07 06:46] LABS: Appearance CLOUDY (CLEAR); Bacteria FEW /HPF (NEGATIVE); Bilirubin NEGATIVE (NEGATIVE); Blood MODERATE Ery/ul (0-5); Epithelial Cells FEW /HPF (FEW); Glucose NEGATIVE (NEGATIVE); Hyaline Casts 0-2 /LPF (0-2); Ketones NEGATIVE (NEGATIVE); Leukocyte Esterase LARGE (NEGATIVE); Mucus SLIGHT /HPF (NEGATIVE); Nitrite NEGATIVE (NEGATIVE); Protein,Urine Dip 100 (Negative); RBC 26-50 /HPF (0-2); Specific Gravity 1.008 (1.005-1.025); Urobilinogen NEGATIVE mg/dL (0-1); WBC 51-100 /HPF (0-5)
[2019-12-07] MEDS ORDERED: CITROMA 296 ML PO ONE (07:03)
[2019-12-07] MEDS: POTASSIUM CHLORIDE 20 mEq IN WATER 100ML 20 MEQ/100 ML BAG IV SCH ×2 (07:28→10:02)
[2019-12-07] MEDS: Sodium Chloride 0.9% 1000 ML 1,000 ML IV SCH ×2 (07:28→16:47)
--- NOTE | 2019-12-07 08:13 | XRAY ---
Indication: Right flank pain. Comparison: None 2 views of the abdomen demonstrates nonspecific nonobstructed bowel gas pattern with right double-J ureteral stent catheter. Solid organs and osseous structures are unremarkable. Single PA chest demonstrates minimal right base subsegmental atelectasis/scarring. Remaining heart, lungs, and bony thorax normal. Impression: Nonacute nonobstructed abdomen with right ureteral stent catheter in situ. Nonacute one view chest with incidental right base atelectasis/scarring.
--- NOTE | 2019-12-07 08:24 | PCM.HP ---
History of Present Illness - Chief Complaint Chief Complaint: HYPOKALEMIA History of Present Illness: is a 24 year old female who presented to the ER early this morning with recurrence of right flank pain. She was here 5 days ago, found to have urteral stone and went to regional. she had a stent placed by Dr Arora, she states he told her he had to push up the stone to place the stent, she has been straining her urine with no stone passage. She has recurrence of severe pain in her right flank region, no gross hematuria, no fever, has nausea but no vomiting. She was discharged on levaquin which she is taking. - Review of Systems Constitutional: No Fever, No Chills Cardiac: No Chest Pain, No Edema, No Syncope Abdominal/Gastrointestinal: Nausea, No Abdominal Pain, No Vomiting, No Diarrhea , No Constipation Genitourinary Symptoms: Flank Pain Skin: No Rash All Other Systems: Reviewed and Negative Medications & Allergies Home Medications: Home Medication List Atenolol 50 mg [Tenormin 50 mg] 50 mg PO BID 12/02/16 [History Confirmed 12/07/19] Sertraline HCl 50 mg [Zoloft 50 mg Tablet] 100 mg PO DAILY 12/02/16 [ History Confirmed 12/07/19] Dextroamphetamine/Amphetamine [Adderall 20 mg Tablet] 20 mg PO DAILY 09/15/17 [ History Confirmed 12/07/19] Losartan Potassium 50 mg PO DAILY 02/27/18 [History Confirmed 12/07/19] hydroCHLOROthiazide [Hydrochlorothiazide] 12.5 mg PO DAILY 02/27/18 [History Confirmed 12/07/19] Hydrocodone/APAP 5-325 Tab^^^ [[place] 5-325 Tablet^^^] 1 tab PO Q4HPRN PRN MDD 6 12/07/19 [History Confirmed 12/07/19] Levofloxacin [Levaquin] 500 mg PO DAILY 12/07/19 [History Confirmed 12/07/19] Allergies/Adverse Reactions: Allergies Allergy/AdvReac Type Severity Reaction Status Date / Time tramadol Allergy Unknown Verified 12/07/19 05:40 - Past Medical History Past Medical History: Yes Neurological History: Migraines ENT History: No Pertinent History Cardiac History: High Cholesterol, Hypertension, Other Respiratory History: No Pertinent History Endocrine Medical History: No Pertinent History Musculoskelatal History: No Pertinent History GI Medical History: No Pertinent History History: No Pertinent History Pyscho-Social History: No Pertinent History Reproductive Disorders: No Pertinent History Comment: heart valve problems. kidney stone recently - Female History Hx Last Menstrual Period: 2 WEEKS Are you now?: No - Past Surgical History Past Surgical History: Yes Neuro Surgical History: No Pertinent History Cardiac History: No Pertinent History Respiratory Surgery: No Pertinent History GI Surgical History: No Pertinent History Genitourinary Surgical Hx: Other Musculskeletal Surgical Hx: No Pertinent History Female Surgical History: Section Other Surgical History: kidney stone removal ESWL. - Social History Smoking Status: Former smoker Exposure to second hand smoke: Yes Alcohol: None Drug Use: none - Physical Exam Vital Signs: Vital Signs - 24 hr Temp Pulse Resp BP Pulse Ox 12/07/19 08:06 98.3 F 18 L 83 H 133/77 99 12/07/19 06:42 89 18 123/90 97 12/07/19 06:33 95 12/07/19 05:29 98.5 F 98 H 16 149/88 95 General Appearance: no apparent distress, obese Neurologic Exam: alert, 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, cooperative Respiratory Exam: normal breath sounds, lungs clear, No respiratory distress Cardiovascular Exam: regular rate/rhythm, normal heart sounds, normal peripheral pulses Gastrointestinal/Abdomen Exam: soft, normal bowel sounds, No tenderness, No mass Back Exam: CVA tenderness (right) Skin Exam: normal color, warm, dry, No rash Results - Labs Lab/Micro Results: Lab Results-Last 24 Hours 12/07/19 12/07/19 12/07/19 Range/Units 05:55 05:55 06:30 WBC 20.3 H (4.0-10.5) K/mm3 RBC 4.02 L (4.1-5.4) M/mm3 Hgb 13.0 (12.0-16.0) gm/dl Hct 37.9 (35-47) % MCV 94.3 (78-100) fl MCH 32.3 H (26-32) pg MCHC 34.3 (32-36) g/dl RDW 12.4 (11.5-14.0) % Plt Count 168 (150-450) K/mm3 MPV 9.5 (7.5-11.0) fl Segmented Neutrophils 67 H (36.0-66.0) % Band Neutrophils 7 H (0.0-2.0) % Lymphocytes (Manual) 15 L (24-44) % Monocytes (Manual) 7 (0.0-12.0) % Atypical Lymphocytes 4 % Platelet Estimate NORMAL (NORMAL) RBC Morphology NORMAL Sodium 136 L (137-145) mmol/L Potassium 2.9 L* (3.5-5.1) mmol/L Chloride 99 (98-107) mmol/L Carbon Dioxide 29 (22-30) mmol/L Anion Gap 11.3 (5-15) MEQ/L BUN 11 (7-17) mg/dL Creatinine 0.95 (0.52-1.04) mg/dL Estimated GFR > 60.0 ML/MIN Glucose 107 H (74-106) mg/dL Calcium 9.6 (8.4-10.2) mg/dL Total Bilirubin 0.90 (0.2-1.3) mg/dL AST 60 H (14-36) U/L ALT 77 H (0-35) U/L Alkaline Phosphatase 135 H (38-126) U/L Serum Total Protein 7.3 (6.3-8.2) g/dL Albumin 4.3 (3.5-5.0) g/dL Urine Color YELLOW (YELLOW) Urine Appearance CLOUDY (CLEAR) Urine pH 6.0 (5-6) Ur Specific [place] 1.008 (1.005-1.025) Urine Protein 100 (Negative) Urine Ketones NEGATIVE (NEGATIVE) Urine Blood MODERATE (0-5) Jose Angel/ul Urine Nitrite NEGATIVE (NEGATIVE) Urine Bilirubin NEGATIVE (NEGATIVE) Urine Urobilinogen NEGATIVE (0-1) mg/dL Ur Leukocyte Esterase LARGE (NEGATIVE) Urine WBC (Auto) 51-100 (0-5) /HPF Urine RBC (Auto) 26-50 (0-2) /HPF U Hyaline Cast (Auto) 0-2 (0-2) /LPF U Epithel Cells (Auto) FEW (FEW) /HPF Urine Bacteria (Auto) FEW (NEGATIVE) /HPF Urine Mucus (Auto) SLIGHT (NEGATIVE) /HPF Urine Culture Reflexed YES (NO) Urine Glucose NEGATIVE (NEGATIVE) mg/dL - Radiology Impressions Radiology Exams & Impressions: Radiology Procedures Category Date Time Status ABDOMEN AND PELVIS W/0 CONTRAS [CT] Routine Exams 12/07/19 08:19 Ordered OBSTR/ACUTE ABDOMEN SERIES Stat Exams 12/07/19 05:50 Completed Assessment/Plan (1) Acute flank pain Current Visit: Yes Status: Acute Assessment & Plan: plan to check ct scan abd/pel to ensure position of stent and stone etc. r/o hydro Code(s): R10.9 - UNSPECIFIED ABDOMINAL PAIN (2) Pyelonephritis Current Visit: No Status: Acute Assessment & Plan: urine culture from 12/02 shows klebsielle sens to levaquin, will continue pending results of scan and if any complication notify Dr Arora Code(s): N12 - TUBULO-INTERSTITIAL NEPHRITIS, NOT SPCF ACUTE OR CHRONIC (3) Kidney stone on right side Current Visit: No Status: Acute Code(s): N20.0 - CALCULUS OF KIDNEY
[2019-12-07] MEDS: TENORMIN 50 MG PO SCH ×2 (09:57→21:33)
[2019-12-07] MEDS: ZOLOFT 50 MG TABLET PO SCH (09:58)
[2019-12-07] MEDS: Cozaar 50 MG PO SCH (10:00)
[2019-12-07] MEDS: Levofloxacin 500MG/100ML D5W 500 MG/100 ML BAG IV SCH (10:02)
[2019-12-07] MEDS: MORPHINE SULFATE 4 MG INJ IV PRN ×2 (18:12→22:50)
[2019-12-07] MEDS: Zofran 4 MG/2 ML VIAL IV PRN (18:12)
--- NOTE | 2019-12-07 18:27 | XRAY ---
Indication: Right flank pain. Status post right renal stent placement. Multiple contiguous axial images obtained through the abdomen and pelvis without contrast as ordered. Comparison: December 02, 2019. Lung bases demonstrates new right base subsegmental atelectasis with tiny effusion. Heart is not enlarged. Noncontrasted stomach and bowel loops appear nonobstructed. Normal appendix. New right double-J ureteral stent catheter in good position. Previous right hydronephrosis, perinephric stranding, and perinephric fluid has improved. Remaining liver, gallbladder, pancreas, spleen, adrenal glands, left kidney, left ureter, urinary bladder, uterus, and aorta appear unremarkable for noncontrast exam. Impression: 1. New right ureteral stent catheter in situ with diminished obstructive uropathy. 2. New right lung base subsegmental atelectasis and tiny effusion. 3. Remaining CT abdomen/pelvis without contrast exam is negative. Comment: Preliminary interpretation was made by [facility]. No critical discrepancy.
[2019-12-08] MEDS: DILAUDID 2 MG INJECTION IV PRN ×2 (01:03→05:09)
[2019-12-08] MEDS: Sodium Chloride 0.9% 1000 ML 1,000 ML IV SCH (04:10)
[2019-12-08] MEDS: Zofran 4 MG/2 ML VIAL IV PRN ×3 (04:13→20:19)
[2019-12-08 05:13] LABS: Hemoglobin 12.3 gm/dl (12.0-16.0); Mean Cell Volume 95.2 fl (78-100); Mean Corpuscular Hemoglobin 32.5 pg (26-32); Mean Corpuscular Hgb Concent. 34.2 g/dl (32-36); Mean Platelet Volume 9.4 fl (7.5-11.0); Platelet Count 166 K/mm3 (150-450); Red Blood Count 3.78 M/mm3 (4.1-5.4); Red Cell Distribution Width 12.3 % (11.5-14.0); White Blood Count 20.1 K/mm3 (4.0-10.5)
[2019-12-08 06:01] LABS: ALBUMIN 3.6 g/dL (3.5-5.0); ALKALINE PHOSPHATASE 100 U/L (38-126); ANION GAP 8.9 MEQ/L (5-15); BLOOD UREA NITROGEN 12 mg/dL (7-17); CHLORIDE 104 mmol/L (98-107); Calcium 8.8 mg/dL (8.4-10.2); Carbon Dioxide 26 mmol/L (22-30); Creatinine 1 0.87 mg/dL (0.52-1.04); Glucose 96 mg/dL (74-106); Potassium 3.2 mmol/L (3.5-5.1); SGOT/AST 93 U/L (14-36); SGPT/ALT 99 U/L (0-35); SODIUM 136 mmol/L (137-145); Total Protein 6.3 g/dL (6.3-8.2)
--- NOTE | 2019-12-08 08:50 | PCM.NOTE ---
Date and Time: 12/08/19 0849 Subjective Assessment: patient persists with severe right flank pain, she is afebrile and tolerating po intake. Objective Exam General Appearance: no apparent distress, alert Respiratory Exam: normal breath sounds, lungs clear, No respiratory distress Cardiovascular Exam: regular rate/rhythm, normal heart sounds Gastrointestinal/Abdomen Exam: soft, No tenderness, No mass Back Exam: CVA tenderness (rt) OBJECTIVE DATA Vital Signs: Vital Signs - 24 hr Temp Pulse Resp BP BP Pulse Ox 12/08/19 07:00 98.1 F 84 18 155/92 100 12/08/19 03:00 98.5 F 83 18 121/68 98 12/07/19 23:25 98.7 F 84 17 131/78 99 12/07/19 21:33 82 132/78 12/07/19 20:00 98.0 F 87 19 132/78 99 12/07/19 16:00 97.8 F 20 L 20 129/63 98 12/07/19 12:00 98.5 F 12 L 83 H 128/75 98 12/07/19 09:57 83 133/77 Pain Assessment - Last Documented Pain Intensity 7 Pain Scale Used 0-10 Pain Scale Intake and Output: Intake & Output 12/05/19 12/06/19 12/07/19 12/08/19 11:59 11:59 11:59 11:59 Intake Total 3405 Output Total 250 500 Balance -250 2905 Weight 104.7 kg Lab Results: Lab Results-Last 24 Hours 12/07/19 12/08/19 12/08/19 Range/Units 15:30 04:53 04:53 WBC 20.1 H (4.0-10.5) K/mm3 RBC 3.78 L (4.1-5.4) M/mm3 Hgb 12.3 (12.0-16.0) gm/dl Hct 36.0 (35-47) % MCV 95.2 (78-100) fl MCH 32.5 H (26-32) pg MCHC 34.2 (32-36) g/dl RDW 12.3 (11.5-14.0) % Plt Count 166 (150-450) K/mm3 MPV 9.4 (7.5-11.0) fl Sodium 136 L (137-145) mmol/L Potassium 3.5 D 3.2 L (3.5-5.1) mmol/L Chloride 104 (98-107) mmol/L Carbon Dioxide 26 (22-30) mmol/L Anion Gap 8.9 (5-15) MEQ/L BUN 12 (7-17) mg/dL Creatinine 0.87 (0.52-1.04) mg/dL Estimated GFR > 60.0 ML/MIN Glucose 96 (74-106) mg/dL Calcium 8.8 (8.4-10.2) mg/dL Total Bilirubin 0.60 (0.2-1.3) mg/dL AST 93 H (14-36) U/L ALT 99 H (0-35) U/L Alkaline Phosphatase 100 (38-126) U/L Serum Total Protein 6.3 (6.3-8.2) g/dL Albumin 3.6 (3.5-5.0) g/dL Radiology Exams: Radiology Procedures Category Date Time Status ABDOMEN AND PELVIS W/0 CONTRAS [CT] Routine Exams 12/07/19 08:19 Completed OBSTR/ACUTE ABDOMEN SERIES Stat Exams 12/07/19 05:50 Completed Assessment/Plan (1) Acute flank pain Current Visit: Yes Status: Acute Code(s): R10.9 - UNSPECIFIED ABDOMINAL PAIN (2) Pyelonephritis Current Visit: No Status: Acute Assessment & Plan: on levaquin, initial culture with klebsiella sens. Code(s): N12 - TUBULO-INTERSTITIAL NEPHRITIS, NOT SPCF ACUTE OR CHRONIC (3) Kidney stone on right side Current Visit: No Status: Acute Code(s): N20.0 - CALCULUS OF KIDNEY
[2019-12-08] MEDS: PERCOCET TABLET 5/325MG PO PRN ×3 (09:13→20:17)
[2019-12-08] MEDS: Sodium Chloride 0.9% W/ 20 mEq KCl/LITER 1,000 ML IV SCH ×2 (09:13→20:31)
[2019-12-08] MEDS: ZOLOFT 50 MG TABLET PO SCH (10:44)
[2019-12-08] MEDS: Levofloxacin 500MG/100ML D5W 500 MG/100 ML BAG IV SCH (10:44)
[2019-12-08] MEDS: TENORMIN 50 MG PO SCH ×2 (10:44→22:56)
[2019-12-08] MEDS: Cozaar 50 MG PO SCH (10:44)
[2019-12-08 11:48] LABS: Lymphocytes 23 % (24-44); Monocyte 7 % (0.0-12.0); Neutrophils 70 % (36.0-66.0); Platelet Estimate NORMAL (NORMAL); Total Cells Counted 100
[2019-12-09] MEDS: PERCOCET TABLET 5/325MG PO PRN ×6 (00:16→20:39)
[2019-12-09] MEDS: Sodium Chloride 0.9% W/ 20 mEq KCl/LITER 1,000 ML IV SCH ×2 (04:20→17:13)
[2019-12-09 04:52] LABS: Hematocrit 34.6 % (35-47); Hemoglobin 11.8 gm/dl (12.0-16.0); Mean Cell Volume 95.3 fl (78-100); Mean Corpuscular Hemoglobin 32.5 pg (26-32); Mean Corpuscular Hgb Concent. 34.1 g/dl (32-36); Mean Platelet Volume 9.3 fl (7.5-11.0); Platelet Count 180 K/mm3 (150-450); Red Blood Count 3.63 M/mm3 (4.1-5.4); Red Cell Distribution Width 12.4 % (11.5-14.0); White Blood Count 15.7 K/mm3 (4.0-10.5)
[2019-12-09 05:16] LABS: ALBUMIN 3.5 g/dL (3.5-5.0); ALKALINE PHOSPHATASE 94 U/L (38-126); ANION GAP 8.4 MEQ/L (5-15); BLOOD UREA NITROGEN 8 mg/dL (7-17); CHLORIDE 107 mmol/L (98-107); Calcium 8.7 mg/dL (8.4-10.2); Carbon Dioxide 26 mmol/L (22-30); Creatinine 1 0.87 mg/dL (0.52-1.04); Glucose 98 mg/dL (74-106); Potassium 3.4 mmol/L (3.5-5.1); SGOT/AST 70 U/L (14-36); SGPT/ALT 93 U/L (0-35); SODIUM 139 mmol/L (137-145); Total Protein 6.1 g/dL (6.3-8.2)
[2019-12-09 07:55] LABS: BAND 3 % (0.0-2.0); Eosinophil 1 % (0.00-3.0); Lymphocytes 22 % (24-44); Monocyte 1 % (0.0-12.0); Neutrophils 73 % (36.0-66.0); Platelet Estimate NORMAL (NORMAL); Total Cells Counted 100
[2019-12-09] MEDS: Zofran 4 MG/2 ML VIAL IV PRN ×3 (08:22→20:35)
--- NOTE | 2019-12-09 08:57 | PCM.NOTE ---
Date and Time: 12/09/19 0853 Subjective Assessment: She is still having flank pain, a steady 5/10. Cathryn po. - Review of Systems Constitutional: No Fever Abdominal/Gastrointestinal: No Vomiting Objective Exam General Appearance: mild distress, alert, obese Neurologic Exam: 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, cooperative Skin Exam: normal color, warm, dry, No rash Eye Exam: eyes nml inspection Ears, Nose, Throat Exam: moist mucous membranes Neck Exam: normal inspection Respiratory Exam: normal breath sounds, lungs clear, No crackles/rales, No rhonchi, No wheezing Cardiovascular Exam: regular rate/rhythm, normal heart sounds, No murmur Gastrointestinal/Abdomen Exam: soft, normal bowel sounds, tenderness (RUQ, RLQ) , No distention, No mass, No guarding, No rebound Extremity Exam: normal inspection, No pedal edema, No swelling Back Exam: normal inspection, No rash OBJECTIVE DATA Vital Signs: Vital Signs - 24 hr Temp Pulse Resp BP BP Pulse Ox 12/09/19 07:27 98.1 F 86 18 155/73 97 12/09/19 04:00 98.4 F 80 16 124/69 98 12/09/19 00:00 98.5 F 78 20 148/76 100 12/08/19 22:56 80 131/82 12/08/19 19:00 97.7 F 80 18 131/82 99 12/08/19 15:00 98.0 F 84 18 143/76 96 12/08/19 11:00 97.6 F 78 18 135/86 97 Pain Assessment - Last Documented Pain Intensity 7 Pain Scale Used 0-10 Pain Scale Intake and Output: Intake & Output 12/06/19 12/07/19 12/08/19 12/09/19 11:59 11:59 11:59 11:59 Intake Total 3685 3852 Output Total 766 222 6512 Balance -250 3185 2802 Weight 104.7 kg Lab Results: Lab Results-Last 24 Hours 12/08/19 12/09/19 12/09/19 Range/Units 04:53 04:28 04:28 WBC 15.7 H (4.0-10.5) K/mm3 RBC 3.63 L (4.1-5.4) M/mm3 Hgb 11.8 L (12.0-16.0) gm/dl Hct 34.6 L (35-47) % MCV 95.3 (78-100) fl MCH 32.5 H (26-32) pg MCHC 34.1 (32-36) g/dl RDW 12.4 (11.5-14.0) % Plt Count 180 (150-450) K/mm3 MPV 9.3 (7.5-11.0) fl Segmented Neutrophils 70 H 73 H (36.0-66.0) % Band Neutrophils 3 H (0.0-2.0) % Lymphocytes (Manual) 23 L 22 L (24-44) % Monocytes (Manual) 7 1 (0.0-12.0) % Eosinophils (Manual) 1 (0.00-3.0) % Platelet Estimate NORMAL NORMAL (NORMAL) RBC Morphology NORMAL NORMAL Sodium 139 (137-145) mmol/L Potassium 3.4 L (3.5-5.1) mmol/L Chloride 107 (98-107) mmol/L Carbon Dioxide 26 (22-30) mmol/L Anion Gap 8.4 (5-15) MEQ/L BUN 8 (7-17) mg/dL Creatinine 0.87 (0.52-1.04) mg/dL Estimated GFR > 60.0 ML/MIN Glucose 98 (74-106) mg/dL Calcium 8.7 (8.4-10.2) mg/dL Total Bilirubin 0.60 (0.2-1.3) mg/dL AST 70 H (14-36) U/L ALT 93 H (0-35) U/L Alkaline Phosphatase 94 (38-126) U/L Serum Total Protein 6.1 L (6.3-8.2) g/dL Albumin 3.5 (3.5-5.0) g/dL Radiology Exams: Radiology Procedures Category Date Time Status ABDOMEN AND PELVIS W/0 CONTRAS [CT] Routine Exams 12/07/19 08:19 Completed Multi-Disciplinary Progress Notes: Multi-Disciplinary Progress Notes 12/08/19 09:49 Case Management Note by Elaina Marquez REGISTRATION TO COME S/W PATIENT ABOUT APPLYING FOR MEDICAID TO HELP WITH AFFORDING MEDICATIONS AFTER DISCHARGE Initialized on 12/08/19 09:49 - END OF NOTE Assessment/Plan (1) Pyelonephritis Current Visit: No Status: Acute Assessment & Plan: On day #3 Levaquin IV. Her WBC are down but still elevated at 15.7. Pt was asking about going home but will at least need to stay through tomorrow; recheck labs then. Code(s): N12 - TUBULO-INTERSTITIAL NEPHRITIS, NOT SPCF ACUTE OR CHRONIC (2) Acute flank pain Current Visit: Yes Status: Acute Code(s): R10.9 - UNSPECIFIED ABDOMINAL PAIN (3) Kidney stone on right side Current Visit: No Status: Acute Assessment & Plan: Supposed to get her stent removed in 2d by Dr. Arora. Code(s): N20.0 - CALCULUS OF KIDNEY
[2019-12-09] MEDS: Cozaar 50 MG PO SCH (09:56)
[2019-12-09] MEDS: TENORMIN 50 MG PO SCH ×2 (09:56→20:35)
[2019-12-09] MEDS: Levofloxacin 500MG/100ML D5W 500 MG/100 ML BAG IV SCH (09:56)
[2019-12-09] MEDS: ZOLOFT 50 MG TABLET PO SCH (09:57)
[2019-12-09] MEDS: ENOXAPARIN SODIUM SQ SCH (09:58)
[2019-12-09 16:21] VITALS: O2SAT 98
[2019-12-10] MEDS: Zofran 4 MG/2 ML VIAL IV PRN ×3 (00:23→08:28)
[2019-12-10] MEDS: PERCOCET TABLET 5/325MG PO PRN ×3 (01:01→09:52)
[2019-12-10] MEDS: Sodium Chloride 0.9% W/ 20 mEq KCl/LITER 1,000 ML IV SCH (03:24)
[2019-12-10 05:17] LABS: Hematocrit 32.8 % (35-47); Hemoglobin 11.2 gm/dl (12.0-16.0); Mean Cell Volume 94.3 fl (78-100); Mean Corpuscular Hemoglobin 32.2 pg (26-32); Mean Corpuscular Hgb Concent. 34.1 g/dl (32-36); Mean Platelet Volume 9.4 fl (7.5-11.0); Platelet Count 205 K/mm3 (150-450); Red Blood Count 3.48 M/mm3 (4.1-5.4); Red Cell Distribution Width 12.1 % (11.5-14.0); White Blood Count 16.7 K/mm3 (4.0-10.5)
[2019-12-10 05:44] LABS: ANION GAP 9.8 MEQ/L (5-15); BLOOD UREA NITROGEN 6 mg/dL (7-17); CHLORIDE 105 mmol/L (98-107); Calcium 8.9 mg/dL (8.4-10.2); Carbon Dioxide 28 mmol/L (22-30); Creatinine 1 0.72 mg/dL (0.52-1.04); Glucose 95 mg/dL (74-106); MAGNESIUM 1.4 mg/dL (1.6-2.3); Potassium 3.7 mmol/L (3.5-5.1); SODIUM 139 mmol/L (137-145)
[2019-12-10 05:45] LABS: BAND 6 % (0.0-2.0); Lymphocytes 15 % (24-44); Monocyte 2 % (0.0-12.0); Neutrophils 77 % (36.0-66.0); Total Cells Counted 100
[2019-12-10 05:46] LABS: Dohle Bodies 1+; Toxic Granulation 1+
[2019-12-10 05:47] LABS: Platelet Estimate NORMAL (NORMAL)
--- NOTE | 2019-12-10 09:34 | PCM.DS ---
Discharge Summary Date of Admission: 12/07/19 06:51 Admitting Physician: ARIANA ANN Primary Care Provider: ARIANA ANN Allergies Allergies tramadol Allergy (Unknown, Verified 12/07/19 05:40) Hospital Summary - Hospital Course Hospital Course: patient was admitted with severe right flank pain and pyelonephritis, she had a stent placed by Dr Arora for a stone and initial culture from our ER showed klebsiella, she had been on levaquin and was sensitive to this so it was continued with fluids and pain control. she has been afebrile, tolerating po and pain is much better controlled. still has some mild leukoctosis, ct confirmed stent position and decompression of hydro on right. - Vitals & Intake/Output Vital Signs: Vital Signs Temperature 98.2 F 12/10/19 07:22 Pulse Rate 79 12/10/19 07:22 Respiratory Rate 18 12/10/19 07:22 Blood Pressure 140/81 12/10/19 07:22 O2 Sat by Pulse Oximetry 98 12/10/19 07:22 Intake & Output: Intake & Output 12/07/19 12/08/19 12/09/19 12/10/19 11:59 11:59 11:59 11:59 Intake Total 3685 4252 4298 Output Total 438 337 8898 2300 Balance -250 3185 2402 1997 Weight 104.7 kg - Lab Result Diagrams: 12/10/19 04:20 12/10/19 04:30 Lab Results-Last 24 Hrs: Lab Results-Last 24 Hours 12/10/19 12/10/19 Range/Units 04:20 04:30 WBC 16.7 H (4.0-10.5) K/mm3 RBC 3.48 L (4.1-5.4) M/mm3 Hgb 11.2 L (12.0-16.0) gm/dl Hct 32.8 L (35-47) % MCV 94.3 (78-100) fl MCH 32.2 H (26-32) pg MCHC 34.1 (32-36) g/dl RDW 12.1 (11.5-14.0) % Plt Count 205 (150-450) K/mm3 MPV 9.4 (7.5-11.0) fl Segmented Neutrophils 77 H (36.0-66.0) % Band Neutrophils 6 H (0.0-2.0) % Lymphocytes (Manual) 15 L (24-44) % Monocytes (Manual) 2 (0.0-12.0) % Toxic Granulation 1+ Dohle Bodies 1+ Platelet Estimate NORMAL (NORMAL) RBC Morphology NORMAL Sodium 139 (137-145) mmol/L Potassium 3.7 (3.5-5.1) mmol/L Chloride 105 (98-107) mmol/L Carbon Dioxide 28 (22-30) mmol/L Anion Gap 9.8 (5-15) MEQ/L BUN 6 L (7-17) mg/dL Creatinine 0.72 (0.52-1.04) mg/dL Estimated GFR > 60.0 ML/MIN Glucose 95 (74-106) mg/dL Calcium 8.9 (8.4-10.2) mg/dL Magnesium 1.4 L* (1.6-2.3) mg/dL Micro Results-Entire Visit: Microbiology 12/07/19 06:30 Urine Culture - Final Clean Catch Midstream NO GROWTH Discharge Exam General Appearance: no apparent distress, alert, obese Neurologic Exam: alert, 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, cooperative Respiratory Exam: normal breath sounds, lungs clear, No respiratory distress Cardiovascular Exam: regular rate/rhythm, normal heart sounds Gastrointestinal/Abdomen Exam: soft, No tenderness, No mass Back Exam: CVA tenderness (minimal on right, much improved since admission) Extremity Exam: normal inspection, normal range of motion Skin Exam: normal color, warm, dry Final Diagnosis/Problem List - Final Discharge Diagnosis/Problem (1) Acute flank pain Current Visit: Yes Status: Acute Code(s): R10.9 - UNSPECIFIED ABDOMINAL PAIN (2) Pyelonephritis Current Visit: No Status: Acute Assessment & Plan: improving, resume levaquin at home. had klebsiella in urine culture and Ct shows improvement in hydro/stranding right side. clinically doing better. Code(s): N12 - TUBULO-INTERSTITIAL NEPHRITIS, NOT SPCF ACUTE OR CHRONIC (3) Kidney stone on right side Current Visit: No Status: Acute Code(s): N20.0 - CALCULUS OF KIDNEY - Discharge Disposition: Home, Self-Care Condition: Good Prescriptions: New Oxycodone/APAP 5 mg/325 mg [Percocet Tablet 5/325Mg] 1 tab PO Q4H PRN PRN #20 tablet MDD 5 PRN Reason: Pain Ondansetron ODT 4 MG [Zofran Odt 4 mg] 4 mg PO Q6H PRN PRN #20 tab.rapdis PRN Reason: Nausea Continue Sertraline HCl 50 mg [Zoloft 50 mg Tablet] 100 mg PO DAILY Atenolol 50 mg [Tenormin 50 mg] 50 mg PO BID Dextroamphetamine/Amphetamine [Adderall 20 mg Tablet] 20 mg PO DAILY hydroCHLOROthiazide [Hydrochlorothiazide] 12.5 mg PO DAILY Losartan Potassium 50 mg PO DAILY Levofloxacin [Levaquin] 500 mg PO DAILY Discontinued Hydrocodone/APAP 5-325 Tab^^^ [[place] 5-325 Tablet^^^] 1 tab PO Q4HPRN PRN MDD 6 PRN Reason: Pain Follow up with: MARQUIS ARORA [COURTESY STAFF] - 1 Day
[2019-12-10] MEDS: TENORMIN 50 MG PO SCH (09:44)
[2019-12-10] MEDS: Cozaar 50 MG PO SCH (09:44)
[2019-12-10] MEDS: ZOLOFT 50 MG TABLET PO SCH (09:44)
[2019-12-10] MEDS: Levofloxacin 500MG/100ML D5W 500 MG/100 ML BAG IV SCH (09:45)
[2019-12-10] MEDS: ENOXAPARIN SODIUM SQ SCH (09:45)
[2019-12-10 09:46] VITALS: BP 146/81; PULSE 77
== END 2019-12-10 11:14 | disposition home or self-care (01) ==
LOC: ED 05:16 → MED SURG 06:51
PROVIDERS: ADMIT Family Medicine; ATTEND Family Medicine
DX: R10.9 Unspecified abdominal pain (principal); N12 Tubulo-interstitial nephritis, not specified as acute or chronic; N20.0 Calculus of kidney; Z79.899 Other long term (current) drug therapy; E87.6 Hypokalemia; D72.829 Elevated white blood cell count, unspecified
CPT/HCPCS: 36415; 74022; 74176; 80048; 80053; 81001; 82360; 83735; 84132; 85025; 87086; 93268; 96374; 96375; 99284; J1170; J1650; J1885; J1956; J2270; J2405; J3010; J3480; A9270-GY; G0378

== ENCOUNTER 2022-04-06 12:52 | Emergency (ER) | payer OTHER ==
[2022-04-06] MEDS ORDERED: PROTONIX 40 MG IV IV ONE ×2 (13:32→13:55)
[2022-04-06] MEDS ORDERED: TYLENOL 325 MG PO ONE (13:32)
[2022-04-06] MEDS ORDERED: Sodium Chloride 0.9% 1000 ML 1,000 ML IV STA (13:32)
[2022-04-06] MEDS ORDERED: Zofran 4 MG/2 ML VIAL IV ONE ×2 (13:32→15:29)
[2022-04-06] MEDS ORDERED: TYLENOL 325 MG ONE (13:42)
[2022-04-06] MEDS ORDERED: Sodium Chloride 0.9% 1000 ML 1,000 ML ONE (13:42)
[2022-04-06 13:46] LABS: Absolute Neutrophil Ct (ANC) 4.36 x10^3/uL (1.4-6.9); Basophil (Absolute #) 0.02 x10^3/uL (0-0.4); Eosinophil % 1.3 % (0.00-5.0); Hematocrit 40.1 % (35-47); Hemoglobin 13.9 g/dL (12.0-16.0); Lymphocyte (Absolute #) 2.51 x10^3/uL (1.0-4.6); Lymphocytes % 33.4 % (24.0-44.0); Mean Corpuscular Hemoglobin 32.3 pg (26-32); Mean Corpuscular Hgb Concent. 34.7 g/dL (32-36); Mean Platelet Volume 9.7 fL (7.5-11.0); Monocytes % 6.6 % (0.0-12.0); Platelet Count 267 x10^3/uL (150-450); Red Blood Count 4.31 x10^6/uL (4.1-5.4); Red Cell Distribution Width 11.9 % (11.5-14.0); White Blood Count 7.5 x10^3/uL (4.0-10.5)
--- NOTE | 2022-04-06 13:51 | ERPHSYRPT ---
- History of Present Illness Time Seen by Provider: 04/06/22 12:54 Historian: patient Exam Limitations: no limitations Patient Subjective Stated Complaint: Vomiting Triage Nursing Assessment: Patient ambulated back to ED and transferred self to bed. Pateint A+O X 3. Patient's skin pink, warm and dry. Patient COVID + as of 03/28/2022. Patient complains of N/V and diarrhea the past 3 days. Paitent complains of headache 4/10. Abdomen soft and round with BS X 4. Lungs clear a/p jasmyne. Physician History: 26 years old female with recently positive for COVID-19 almost a week ago presented in the ER with 3 days of nausea vomiting diarrhea, decreased ability to hold much down, feeling weak fatigued tired. Also having generalized abdominal cramping intermittently. No fever or chills reported. Mild headache. She initially had cough which is better now. No difficulty breathing. Timing/Duration: day(s) (3), intermittent, gradual onset Activities at Onset: activity, rest Quality: cramping, dullness Abdominal Pain Onset Location: generalized abdomen Pain Radiation: no radiation Severity of Pain-Max: moderate Severity of Pain-Current: mild Modifying Factors: Worsens With: movement Associated Symptoms: diarrhea, fatigue, headache, nausea, vomiting Previous symptoms: no prior history Allergies/Adverse Reactions: tramadol Allergy (Unknown, Verified 04/06/22 12:59) Home Medications: Atenolol 50 mg [Tenormin 50 mg] 50 mg PO BID 12/02/16 [History] Dextroamphetamine/Amphetamine [Adderall 20 mg Tablet] 20 mg PO DAILY 09/15/17 [History] Losartan Potassium 100 mg PO DAILY 02/27/18 [History] hydroCHLOROthiazide [Hydrochlorothiazide] 12.5 mg PO DAILY 02/27/18 [History] Hx Tetanus, Diphtheria Vaccination/Date Given: Yes Hx Influenza Vaccination/Date Given: No Hx Pneumococcal Vaccination/Date Given: No Immunizations Up to Date: Yes Travel Risk - International Travel Have you traveled outside of the country in past 3 weeks: No - Coronavirus Screening Are you exhibiting any of the following symptoms?: No Close contact with a COVID-19 positive Pt in past 14-21 Days: No - Vaccine Status Have you recieved a Covid-19 vaccination: No - Review of Systems Constitutional: No Symptoms Eyes: No Symptoms Ears, Nose, & Throat: No Symptoms Respiratory: Cough Cardiac: No Symptoms Abdominal/Gastrointestinal: Abdominal Pain, Nausea, Vomiting, Diarrhea Genitourinary Symptoms: No Symptoms Musculoskeletal: Myalgias Skin: No Symptoms Neurological: Headache Psychological: No Symptoms Endocrine: No Symptoms Hematologic/Lymphatic: No Symptoms Immunological/Allergic: No Symptoms - Past Medical History Pertinent Past Medical History: Yes Neurological History: Migraines ENT History: No Pertinent History Cardiac History: High Cholesterol, Hypertension, Other Respiratory History: No Pertinent History Endocrine Medical History: No Pertinent History Musculoskeletal History: No Pertinent History GI Medical History: No Pertinent History History: No Pertinent History Psycho-Social History: No Pertinent History Female Reproductive Disorders: No Pertinent History Other Medical History: heart valve problems. kidney stone recently - Past Surgical History Past Surgical History: Yes Neuro Surgical History: No Pertinent History Cardiac: No Pertinent History Respiratory: No Pertinent History Gastrointestinal: No Pertinent History Genitourinary: Other Musculoskeletal: No Pertinent History Female Surgical History: Section Other Surgical History: kidney stone removal ESWL. - Social History Smoking Status: Former smoker Exposure to second hand smoke: Yes Drug Use: none Patient Lives Alone: No - Female History Hx Last Menstrual Period: 3 weeks ago Hx Now: No - Nursing Vital Signs Nursing Vital Signs: Initial Vital Signs Temperature 96.2 F 04/06/22 13:05 Pulse Rate 109 H 04/06/22 13:05 Respiratory Rate 18 04/06/22 13:05 Blood Pressure 162/99 04/06/22 13:05 O2 Sat by Pulse Oximetry 99 04/06/22 13:05 Pain Scale Pain Intensity 3 - Physical Exam General Appearance: no apparent distress, alert Eye Exam: PERRL/EOMI Ears, Nose, Throat Exam: normal ENT inspection, pharynx normal Neck Exam: normal inspection, non-tender, supple, full range of motion Respiratory Exam: normal breath sounds, lungs clear Cardiovascular Exam: regular rate/rhythm, normal heart sounds Gastrointestinal/Abdomen Exam: soft, normal bowel sounds, No tenderness Back Exam: normal inspection, normal range of motion Extremity Exam: normal inspection, normal range of motion Neurologic Exam: alert, 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, cooperative Skin Exam: normal color SpO2 Interpretation: normal SpO2: 99 O2 Delivery: Room Air Ordered Tests: Active Orders 24 hr Category Date Time Status IV Insertion STAT Care 04/06/22 13:32 Active NPO (ED) STAT Care 04/06/22 13:32 Active CBC W DIFF Stat Lab 04/06/22 13:20 Completed CMP Stat Lab 04/06/22 13:20 Completed HCG QUALITATIVE,SERUM Stat Lab 04/06/22 13:20 Completed LIPASE Stat Lab 04/06/22 13:20 Completed UA W/RFX CULTURE Stat Lab 04/06/22 13:50 Completed Medication Summary Discontinued Medications Generic Name Dose Route Start Last Admin Trade Name Tiera PRN Reason Stop Dose Admin Acetaminophen 975 mg 04/06/22 13:32 04/06/22 13:43 Acetaminophen 325 Mg Tablet PO 04/06/22 13:33 975 mg STAT ONE Administration Acetaminophen Confirm 04/06/22 13:42 Acetaminophen 325 Mg Tablet Administered 04/06/22 13:43 Dose 975 mg .ROUTE .STK-MED ONE Sodium Chloride 1,000 mls @ 999 mls/hr 04/06/22 13:32 04/06/22 14:54 Sodium Chloride 0.9% 1000 Ml IV 04/06/22 14:32 Infused .Q1H1M STA Infusion Sodium Chloride Confirm 04/06/22 13:42 Sodium Chloride 0.9% 1000 Ml Administered 04/06/22 13:43 Dose 1,000 mls @ ud .ROUTE .STK-MED ONE Ondansetron HCl 4 mg 04/06/22 13:32 04/06/22 13:56 Ondansetron Hcl 4 Mg/2 Ml Vial IV 04/06/22 13:33 4 mg STAT ONE Administration Ondansetron HCl Confirm 04/06/22 13:55 Ondansetron Hcl 4 Mg/2 Ml Vial Administered 04/06/22 13:56 Dose 4 mg .ROUTE .STK-MED ONE Pantoprazole Sodium 40 mg 04/06/22 13:32 04/06/22 13:57 Pantoprazole 40 Mg Vial IV 04/06/22 13:33 40 mg STAT ONE Administration Pantoprazole Sodium Confirm 04/06/22 13:55 Pantoprazole 40 Mg Vial Administered 04/06/22 13:56 Dose 40 mg IV .STK-MED ONE Lab/Rad Data: Laboratory Result Diagrams 04/06/22 13:20 04/06/22 13:20 Laboratory Results 06/09/22 06/09/22 06/09/22 Range/Units 13:50 13:20 13:20 WBC (4.0-10.5) x10^3/uL RBC (4.1-5.4) x10^6/uL Hgb (12.0-16.0) g/dL Hct (35-47) % MCV (78-100) fL MCH (26-32) pg MCHC (32-36) g/dL RDW (11.5-14.0) % Plt Count (150-450) x10^3/uL MPV (7.5-11.0) fL Gran % (36.0-66.0) % Immature Gran % (Auto) (0.00-0.4) % Nucleat RBC Rel Count (0.00-0.1) % Eos # (Auto) (0-0.5) x10^3/uL Immature Gran # (Auto) (0.00-0.03) x10^3u/L Absolute Lymphs (auto) (1.0-4.6) x10^3/uL Absolute Monos (auto) (0.0-1.3) x10^3/uL Absolute Nucleated RBC (0.00-0.01) x10^3u/L Lymphocytes % (24.0-44.0) % Monocytes % (0.0-12.0) % Eosinophils % (0.00-5.0) % Basophils % (0.0-0.4) % Absolute Granulocytes (1.4-6.9) x10^3/uL Basophils # (0-0.4) x10^3/uL Sodium 138 (137-145) mmol/L Potassium 3.5 (3.5-5.1) mmol/L Chloride 103 (98-107) mmol/L Carbon Dioxide 22 (22-30) mmol/L Anion Gap 17.0 H (5-15) MEQ/L BUN 9 (7-17) mg/dL Creatinine 0.57 (0.52-1.04) mg/dL Estimated GFR > 60.0 ML/MIN Glucose 98 (74-106) mg/dL Calcium 9.4 (8.4-10.2) mg/dL Total Bilirubin 1.30 (0.2-1.3) mg/dL AST 35 (14-36) U/L ALT 33 (0-35) U/L Alkaline Phosphatase 65 (38-126) U/L Serum Total Protein 7.5 (6.3-8.2) g/dL Albumin 4.7 (3.5-5.0) g/dL Lipase 95 (23-300) U/L Serum , Qual NEGATIVE (Negative) Urinalys Dipstick Clnc MAIN LAB Urine Color YELLOW (YELLOW) Urine Appearance CLEAR (CLEAR) Urine pH 6.0 (5-6) Ur Specific [place] 1.030 (1.005-1.025) POC Urine Protein Conf 30 (Negative) Urine Ketones SMALL-15 (NEGATIVE) Urine Nitrite NEGATIVE (NEGATIVE) Urine Bilirubin MODERATE (NEGATIVE) Urine Urobilinogen 1 (0-1) mg/dL Urine Leukocytes NEGATIVE (NEGATIVE) Urine WBC (Auto) 3-5 (0-5) /HPF Urine RBC (Auto) 0-2 (0-2) /HPF U Epithel Cells (Auto) RARE (FEW) /HPF Urine Bacteria (Auto) RARE (NEGATIVE) /HPF Urine RBC TRACE-INTACT (0-5) Jose Angel/ul Urine Mucus (Auto) SLIGHT (NEGATIVE) /HPF Ur Culture Indicated? NO Urine Glucose NEGATIVE (NEGATIVE) mg/dL 04/06/22 Range/Units 13:20 WBC 7.5 (4.0-10.5) x10^3/uL RBC 4.31 (4.1-5.4) x10^6/uL Hgb 13.9 (12.0-16.0) g/dL Hct 40.1 (35-47) % MCV 93.0 (78-100) fL MCH 32.3 H (26-32) pg MCHC 34.7 (32-36) g/dL RDW 11.9 (11.5-14.0) % Plt Count 267 (150-450) x10^3/uL MPV 9.7 (7.5-11.0) fL Gran % 58.0 (36.0-66.0) % Immature Gran % (Auto) 0.4 (0.00-0.4) % Nucleat RBC Rel Count 0.0 (0.00-0.1) % Eos # (Auto) 0.10 (0-0.5) x10^3/uL Immature Gran # (Auto) 0.03 (0.00-0.03) x10^3u/L Absolute Lymphs (auto) 2.51 (1.0-4.6) x10^3/uL Absolute Monos (auto) 0.50 (0.0-1.3) x10^3/uL Absolute Nucleated RBC 0.00 (0.00-0.01) x10^3u/L Lymphocytes % 33.4 (24.0-44.0) % Monocytes % 6.6 (0.0-12.0) % Eosinophils % 1.3 (0.00-5.0) % Basophils % 0.3 (0.0-0.4) % Absolute Granulocytes 4.36 (1.4-6.9) x10^3/uL Basophils # 0.02 (0-0.4) x10^3/uL Sodium (137-145) mmol/L Potassium (3.5-5.1) mmol/L Chloride (98-107) mmol/L Carbon Dioxide (22-30) mmol/L Anion Gap (5-15) MEQ/L BUN (7-17) mg/dL Creatinine (0.52-1.04) mg/dL Estimated GFR ML/MIN Glucose (74-106) mg/dL Calcium (8.4-10.2) mg/dL Total Bilirubin (0.2-1.3) mg/dL AST (14-36) U/L ALT (0-35) U/L Alkaline Phosphatase (38-126) U/L Serum Total Protein (6.3-8.2) g/dL Albumin (3.5-5.0) g/dL Lipase (23-300) U/L Serum , Qual (Negative) Urinalys Dipstick Clnc Urine Color (YELLOW) Urine Appearance (CLEAR) Urine pH (5-6) Ur Specific [place] (1.005-1.025) POC Urine Protein Conf (Negative) Urine Ketones (NEGATIVE) Urine Nitrite (NEGATIVE) Urine Bilirubin (NEGATIVE) Urine Urobilinogen (0-1) mg/dL Urine Leukocytes (NEGATIVE) Urine WBC (Auto) (0-5) /HPF Urine RBC (Auto) (0-2) /HPF U Epithel Cells (Auto) (FEW) /HPF Urine Bacteria (Auto) (NEGATIVE) /HPF Urine RBC (0-5) Jose Angel/ul Urine Mucus (Auto) (NEGATIVE) /HPF Ur Culture Indicated? Urine Glucose (NEGATIVE) mg/dL - Progress Progress: improved Progress Note: 04/06/22 15:29 She is given fluids and symptomatic treatment. On reevaluation feeling much better. Abdominal exam soft with no peritoneal signs on repeated evaluations as well. Unremarkable lab work. Do not think needs imaging as her symptoms seems to be more of a viral gastroenteritis, recommended supportive care. Discussed increase hydration, Zofran as needed and outpatient follow-up. Discussed signs symptoms of worsening needing return to ER which she seems understanding. Counseled pt/family regarding: lab results, diagnosis, need for follow-up - Departure Departure Disposition: Home Clinical Impression: Gastroenteritis Condition: Stable Critical Care Time: No Referrals: SANDER DANIELS NP [Primary Care Provider] - Follow up/PCP as directed (In 2 days for reevaluation) Instructions: Viral Gastroenteritis, Adult (DC) Additional Instructions: None plenty of fluids to keep yourself well-hydrated. Take Zofran as needed for nausea and vomiting. Slowly introduce soft to regular diet. Follow-up with primary care for reevaluation. Return to ER for increasing/intractable nausea vomiting diarrhea/abdominal pain/fever chills etc. Prescriptions: Ondansetron ODT 4 MG [Zofran Odt 4 mg] 1 ea PO QIDPRN PRN #7 tablet PRN Reason: n/v
[2022-04-06] MEDS ORDERED: Zofran 4 MG/2 ML VIAL ONE ×2 (13:55→15:38)
[2022-04-06 14:09] LABS: ALKALINE PHOSPHATASE 65 U/L (38-126); BLOOD UREA NITROGEN 9 mg/dL (7-17); CHLORIDE 103 mmol/L (98-107); Calcium 9.4 mg/dL (8.4-10.2); Carbon Dioxide 22 mmol/L (22-30); Creatinine 1 0.57 mg/dL (0.52-1.04); EST GLOMERULAR FILTRATION RATE > 60.0 ML/MIN; Glucose 98 mg/dL (74-106); LIPASE 95 U/L (23-300); Potassium 3.5 mmol/L (3.5-5.1); SGOT/AST 35 U/L (14-36); SGPT/ALT 33 U/L (0-35); SODIUM 138 mmol/L (137-145); Total Protein 7.5 g/dL (6.3-8.2)
[2022-04-06 14:13] LABS: ALBUMIN 4.7 g/dL (3.5-5.0)
[2022-04-06 15:26] LABS: Appearance CLEAR (CLEAR); Bacteria RARE /HPF (NEGATIVE); Bilirubin MODERATE (NEGATIVE); Dipstick done @ ? MAIN LAB; Epithelial Cells RARE /HPF (FEW); Glucose NEGATIVE (NEGATIVE); Ketones SMALL-15 (NEGATIVE); Mucus SLIGHT /HPF (NEGATIVE); RBC 0-2 /HPF (0-2)
[2022-04-06 15:27] LABS: Nitrite NEGATIVE (NEGATIVE); Protein,Urine Dip 30 (Negative); RBC TRACE-INTACT Ery/ul (0-5); Urine Cultured Indicated? NO; Urobilinogen 1 mg/dL (0-1)
[2022-04-06 15:35] VITALS: BP 199/91; PULSE 95; O2SAT 97
== END 2022-04-06 15:45 | disposition home or self-care (01) ==
LOC: ED 12:52
DX: A08.4 Viral intestinal infection, unspecified (principal); U07.1 COVID-19; R11.2 Nausea with vomiting, unspecified; R53.1 Weakness; R53.83 Other fatigue; R10.84 Generalized abdominal pain; R51.9 Headache, unspecified; E78.5 Hyperlipidemia, unspecified; I10 Essential (primary) hypertension; Z28.310 Unvaccinated for COVID-19; Z79.899 Other long term (current) drug therapy
CPT/HCPCS: 36000; 36415; 80053; 81015; 83690; 84703; 85025; 96374; 96375; 96376; 99284; J2405; A9270-GY

== ENCOUNTER 2024-09-12 06:29 | Day surgery (SDC) | payer OTHER ==
[2024-09-12] MEDS ORDERED: Lactated Ringers 1,000 ML IV ONE (07:00)
[2024-09-12 07:03] LABS: HCG URINE TEST NEGATIVE (NEGATIVE)
[2024-09-12 07:20] VITALS: RESP 18
[2024-09-12] MEDS ORDERED: Versed 2 MG/2 ML Injection ONE (07:41)
[2024-09-12] MEDS ORDERED: Xylocaine-Mpf 2% 5 Ml Vial ONE (07:42)
[2024-09-12] MEDS ORDERED: DIPRIVAN 200 MG/20 ML IV ONE ×2 (07:42→07:57)
[2024-09-12 08:29] VITALS: O2SAT 97
[2024-09-12 08:40] VITALS: BP 123/89; PULSE 85; TEMP 98.4
--- NOTE | 2024-09-14 18:51 | OP ---
DATE AND TIME OF SURGERY: 09/12/2024 [id number] PREOPERATIVE DIAGNOSIS: Epigastric pain. POSTOPERATIVE DIAGNOSES: 1) Gastritis. 2) At least mild gastroparesis. OPERATIVE PROCEDURE: Esophagogastroduodenoscopy with cold forceps biopsy. SURGEON: Joni Valdez MD. ANESTHESIA: Medications were given by the Anesthesia Department. HISTORY: The patient is a 29-year-old white female who presents now for complaints of epigastric pain. The patient has been taking Ozempic over the past several months and has lost 25 pounds. She was increased to a 1 mg dose. The patient is noted to also be taking non-steroidal anti-inflammatories at least every 2 or 3 days. The patient was felt to need to have endoscopic evaluation. She was apprised of the risks of the procedure including the risk of perforation, phlebitis, untoward reaction to medication, bleeding, and missed lesions. Patient verbalized her understanding and desired to have the procedure performed. DESCRIPTION OF PROCEDURE: Patient was given medication by the Anesthesia Department. She had continuous pulse oximetry, ECG monitoring, and intermittent blood pressure monitoring during the examination. She was placed in the left lateral decubitus position. A bite block was placed. A flexible Olympus gastroscope was used to intubate the oropharynx. A view of the larynx was obtained and was normal. The scope was easily introduced in the esophagus which appeared to be normal throughout its length. The stomach was entered, where routine gastric were seen, as well as moderate erythema. No erosions or ulcerations, however, were encountered. The stomach was insufflated and the scope was passed along the greater curvature of the stomach to the antrum. The pylorus was encountered and intubated. The duodenum was inspected and found to be normal. The scope was withdrawn toward the stomach. Again, retroflexed view was obtained of the lesser curvature, fundus, and cardia regions of the stomach, which appeared to be essentially normal. The scope was directed toward the gastric antrum where biopsies were obtained to rule out the presence of Helicobacter pylori-type organisms. The scope was then removed from the patient who tolerated the procedure well and was sent back to outpatient recovery in good condition.
== END 2024-09-12 08:46 | disposition home or self-care (01) ==
LOC: SDC 06:29
PROVIDERS: ATTEND Family Medicine
DX: K29.70 Gastritis, unspecified, without bleeding (principal); R10.13 Epigastric pain; K31.84 Gastroparesis
CPT/HCPCS: 81025; 93005; J2250; J2704